=== PATIENT | female | born 1965 | race Caucasian/White ===

== ENCOUNTER 2023-08-20 10:18 | Outpatient (AMB) | payer MEDICARE, MEDICAID, SELFPAY ==
--- NOTE | 2023-08-20 11:00 | HO.SPINEOV ---
Intake Visit Reasons: low back pain Intake Note: Ms. 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 She is known to our service and previously had an L4-5 OLIF completed at [facility]. When describing her shooting leg pains she runs her hand over her lateral thigh, across the lateral side of her knee, and down her lateral gastrocnemius. She denies any numbness/burning but does say she gets some intermittent tingling that accompanies her radicular pain. No issues with micturition or bowel movements. She states the pain is worse on her right, but intermittently will affect her left side as well. She states she has tried a plethora of over the counter medications to help alleviate this pain, including ibuprofen, Tylenol, and [id number] pain patches/creams. She has been to physical therapy in the last 3 months which she did not find helpful for her, and only exacerbated her pain. She is also being followed by our colleagues at [facility] pain management who recently started her on duloxetine to help mitigate her nerve pain. She states that her pain is exacerbated by walking, lifting, and ambulating up stairs. It is alleviated by sitting or lying down. PMH: High blood pressure, RA, anxiety, osteoarthritis, osteopenia (nearly osteoporosis, last DEXA -2.4). Social hx: The patient does not smoke, reports no substance use. Medications: Lisinopril, bupropion, duloxetine, Xeljanz, turmeric, ibuprofen, magnesium. Allergies: NKDA. Physical exam: The patient has 5/5 strength in her upper and lower extremities. She has no sensational deficits. Her bilateral patellar reflexes are 1+ hypoactive. The rest of her reflexes are 2+ intact. She is able to ambulate well and rises from a seated position without difficulty. (-) bilateral straight leg raise, (-) Justin's, (-) clonus. Imaging review: MRI of the lumbar spine completed at [facility] shows stable fusion at L4-5. At L3-4 there appears to be the development of severe central canal and bilateral foraminal stenosis, worse on the right. Impression: Rosita is a pleasant 58-year-old female who comes in today with a chief complaint of shooting leg pains on both sides, worse on the right. Importantly, she reports no back pain and states that her back feels fine. She has been treated conservatively over the course of the last year, and her pain is only continued to worsen. On review of her MRI appears she has some adjacent segment degeneration at L3-4. I would like to review her imaging and history with Dr. Molina to see if there are any surgical intervention to would like to offer her. We tentatively discussed the possibility of extending her fusion from L4-5 up to L3-4, however this typically would be done to address back pain as well as radiculopathy. We also discussed the possibility of a lumbar decompression surgery at L3-4. I will call the patient back later this week after I have discussed this with Dr. Molina. Thank you for allowing us to care for your patient. The total time spent with this visit with this patient was 45 minutes reviewing history, physical exam, MRI imaging review, and implementation of treatment plan or further diagnostic testing Jama Molina MD,PhD [facility] Coding Level of Care Code New Pt Level 4 (63215) Diagnoses Lumbar radiculopathy M54.16
== END 2023-08-20 12:26 | disposition home or self-care (01) ==
PROVIDERS: PCP Family Medicine; Referring Provider Physical Medicine & Rehabilitation; Visit Provider Physician Assistant
DX: M54.16 Radiculopathy, lumbar region (principal)
CPT/HCPCS: 99204

== ENCOUNTER → 2023-08-20 10:18 | Outpatient (BNVA) | payer MEDICARE, MEDICAID, SELFPAY | PROVIDERS: PCP Family Medicine; Visit Provider Physician Assistant | DX: M54.16 Radiculopathy, lumbar region (principal) | CPT/HCPCS: 99202 ==

== ENCOUNTER 2023-11-09 09:28 | Outpatient (AMB) | payer MEDICARE, MEDICAID, SELFPAY ==
--- NOTE | 2023-11-09 09:44 | HO.SPINEOV ---
Intake Visit Reasons: Discuss sx Intake Note: Ms. Hudson is here today to discuss surgical options. Denial Management Representative Required: No Assessment & Plan Assessment & Plan (1) Lumbar spinal stenosis due to adjacent segment disease after fusion procedure: Code(s): M48.061 - Spinal stenosis, lumbar region without neurogenic claudication; M51.36 - Other intervertebral disc degeneration, lumbar region Category: Medical Plan Dear colleague, On 11/09/2023, I saw for preoperative visit Rosita Hudson. She underwent an minimally invasive L4-5 lumbar fusion 2 years ago and developed adjacent degenerative disc disease L3-4 with neurogenic claudication symptoms and back pain. She completed a course of physical therapy without effect. She recently was started on gabapentin 3 x 300 which helps tremendously. However, she still has severe pain in her back radiating to her right leg that wakes her up at night. She is leaning towards surgery to address the ongoing symptoms. I offered her an L3-4 OLLIF, trans Kambin approach to indirectly decompress the central canal and exiting nerve roots. She is tentatively scheduled for 04/01/2024. She will need to Xeljanz 2 weeks prior to surgery. I spent 25 minutes in his consult discussing the procedure and reviewing imaging. Giancarlo Molina MD, PhD Spine Fellowship Trained Neurosurgeon Director, [facility] Coding Level of Care Code Est Pt Level 3 (97959) Diagnoses Lumbar spinal stenosis due to adjacent segment disease after fusion procedure M48.061; M51.36
== END 2023-11-09 09:58 | disposition home or self-care (01) ==
PROVIDERS: PCP Family Medicine; Visit Provider Neurological Surgery
DX: M48.061 Spinal stenosis, lumbar region without neurogenic claudication (principal); M51.36 Other intervertebral disc degeneration, lumbar region
CPT/HCPCS: 99213

== ENCOUNTER → 2023-11-09 09:28 | Outpatient (BNVA) | payer MEDICARE, MEDICAID, SELFPAY | PROVIDERS: PCP Family Medicine; Visit Provider Neurological Surgery | DX: M48.061 Spinal stenosis, lumbar region without neurogenic claudication (principal); M51.36 Other intervertebral disc degeneration, lumbar region | CPT/HCPCS: 99212 ==

== ENCOUNTER 2024-01-29 06:00 | Inpatient (IN) | payer MEDICARE, MEDICAID, SELFPAY ==
[2024-01-18 10:23] VITALS: BP 144/84; PULSE 65; RESP 18; O2SAT 97; BMI 39.1
[2024-01-18 11:39] LABS: MANUAL DIFF FLAG NO
[2024-01-18 12:32] LABS: Basophils Percent Auto 0.6 % (0-2); Eosinophils Absolute Auto 0.1 X10*3/uL (0.0-0.4); Eosinophils Percent Auto 2.2 % (0-4); Hematocrit 41.1 % (37.0-47.0); Hemoglobin 13.6 g/dl (12.0-16.0); Imm Gran Abs Auto 0.11 X10*3/uL (0.00-0.03); Imm Gran Pct Auto 1.7 % (0.0-0.4); Lymphocytes Absolute Auto 2.2 X10*3/uL (1.2-4.9); Lymphocytes Percent Auto 34.3 % (20-40); Mean Corpuscular HGB Conc 33.1 g/dl (31.0-35.0); Mean Corpuscular Hemoglobin 29.8 pg (27.0-33.0); Mean Corpuscular Volume 90.1 fL (80.0-98.0); Mean Platelet Volume 9.6 fL (9.4-12.3); Monocytes Absolute Auto 0.5 X10*3/uL (0.1-1.2); Monocytes Percent Auto 8.4 % (2-11); Neutrophils Absolute Auto 3.3 x10*3/uL (2.0-8.3); Neutrophils Percent Auto 52.8 % (45-73); Platelet Count 348 X10*3/uL (160-400); Red Blood Count 4.56 X10*6/uL (4.20-5.50); Red Cell Distribution Width 14.3 % (11.0-16.0); White Blood Count 6.3 X10*3/uL (4.8-10.8)
[2024-01-18 13:12] LABS: Anion Gap 12 (12-20); Blood Urea Nitrogen 26 mg/dL (9-16); Calcium 9.3 mg/dL (8.4-10.2); Carbon Dioxide 26 mmol/L (22-29); Chloride 106 mmol/L (96-108); Creatinine Clr Calc Pharmacy 85.5; Estimated Glomerular Filt Rate > 60; Glucose Random 87 mg/dL (60-115); Potassium 4.2 mmol/L (3.3-5.1); Sodium 140 mmol/L (135-145)
[2024-01-29] VITALS (17 sets, daily range): BP systolic 112–141; BP diastolic 64–88; PULSE 68–83; RESP 16–18; TEMP 36–36.6; O2SAT 93–98
[2024-01-29] MEDS: methocarbamoL 750 MG TABLET PO (06:36)
--- NOTE | 2024-01-29 07:01 | MHC.SHP ---
Pre-Procedural Eval Section A - 24 Hr Update-Section A only Date of Service: 01/29/24 The patient is an INPATIENT: No Changes since office visit: No Cold of Flu in the past 2 weeks, No New Medical Problems, No Changes in Medication and No Patient answered all questions The patient has been examined within 24 hours of the surgical procedure. The History & Physical has been completed within 30 days and I have reviewed it.: No Section B - Complete if H&P > 30 days Chief Complaint: s/p L3-4 OLLIF Allergies: Allergies Allergy/AdvReac Type Severity Reaction Status Date / Time No Known Allergies Allergy Verified 01/29/24 06:04 Review of Systems Sugical H&P ROS: Negative: Constitution, Cardiovascular, Respiratory, Neurological, Psychiatric, Hem-Onc, Allergic/Immunologic, Gastrointestinal, Genitourinary, Musculoskeletal, Integumentary, Endocrine and Eyes/Ears/Nose/Throat Exam Surgical H&P Exam: Normal: HEENT, Normal: Heart, Normal: Lungs, Normal: Extremities, Normal: Abdomen, Normal: Skin and Normal: Neurological (awake, alert,oriented x 3 ) Plan Diagnosis/Plan: Unchanged L3-4 transkambin oblique lateral lumbar interbody fusion Time Spent With Patient Time: Total time managing care of this patient today __6__ minutes.
--- NOTE | 2024-01-29 07:42 | PHA.MEDREC ---
Pharmacy Consult ? Medication Reconciliation Pharmacy has reviewed the medication reconciliation completed by nursing.
--- NOTE | 2024-01-29 08:02 | HO.ANESPROP2 ---
HPI - Anesthesia Eval Consult details Narrative: 58 yo F presenting for L3-4 transkambin lumbar interbody fusion. REGINALD on CPAP. 4mm PFO on echo with Valsalva. PMFSH Active Problems Active Problems: All Active Problems Lumbar spinal stenosis due to adjacent segment disease after fusion procedure (Acute) Lumbar radiculopathy (Acute) Past Medical History Medical History (Updated 01/18/24 @ 10:17 by Blanca Nuñez RN) Back pain Murmur PFO (patent foramen ovale) GERD (gastroesophageal reflux disease) Osteoarthritis Depression Hyperlipidemia TB lung, latent Seropositive rheumatoid arthritis Obesity Diverticulitis Spinal stenosis of lumbar region with neurogenic claudication Lumbar disc disease Polycythemia Sleep apnea Rheumatoid arthritis Irregular heart beats HTN (hypertension) Arthritis Lumbar radiculopathy Family History Family history of problems with anesthesia: No Surgical History Surgical History (Updated 01/18/24 @ 10:17 by Blanca Nuñez RN) History of esophagogastroduodenoscopy (EGD) H/O colonoscopy Hx of colectomy Hx of laparoscopic gastric banding H/O vulvectomy History of colostomy reversal Hx of breast biopsy Hx of hernia repair Hx of spinal fusion Hx of cholecystectomy Hx of carpal tunnel repair History of back surgery History of Problems with Anesthesia: No Social History Social History Are you a primary child care counselor to a significant other at home: No Do you presently have visiting nurse or other home services: No Patient Tobacco Use Status: Former Tobacco user Use of substances other than those prescribed or required for medical reasons: No Have you been hit, kicked, punched, or otherwise hurt by someone within the past year? If so, by whom?: No Are you DNR?: No Advance Directives: No Advance Directives Information Provided: No Advance Directives on File: No Recently lost weight without trying: No Eating poorly because of decreased appetite: No Nutrition Risks: No Nutritional Risk Patient : No : No Poor oral hygiene: Yes (missing teeth) Meds Allergies Allergy/AdvReac Type Severity Reaction Status Date / Time No Known Allergies Allergy Verified 01/29/24 06:04 Home Medications ?Medication ?Instructions ?Recorded ?Confirmed ?Last Taken ?Type Lactobacillus rhamnosus GG 10 1 cap PO BEDTIME 01/18/24 01/29/24 01/28/24 21:00 History billion cell capsule (Culturelle) bupropion HCl 300 mg 24 hr tablet, 300 mg PO QAM 01/18/24 01/29/24 01/29/24 05:00 History extended release gabapentin 300 mg capsule 300 mg PO TID 01/18/24 01/29/24 01/29/24 05:00 History ibuprofen 800 mg tablet 800 mg PO TID PRN pain 01/18/24 01/29/24 01/21/24 History lisinopril 20 mg tablet 20 mg PO DAILY 01/18/24 01/29/24 01/28/24 History magnesium glycinate 240 mg PO BEDTIME 01/18/24 01/29/24 01/28/24 21:00 History tofacitinib 5 mg tablet (Xeljanz) 5 mg PO BID 01/18/24 01/29/24 01/21/24 History Exam Exam Date and Time: 01/29/24 0725 Height,Weight and Vital Signs: Height 5 ft 3 in Weight 100.244 kg Last Vital Signs Temp 97.1 F 01/29/24 06:15 Pulse 70 01/29/24 06:15 Resp 16 01/29/24 06:15 BP 141/88 H 01/29/24 06:15 Pulse Ox 95 01/29/24 06:15 O2 Del Method Room Air 01/29/24 06:15 Pertinent Lab Results Pertinent Lab Results: Laboratory Tests 01/18/24 01/18/24 11:24 11:39 WBC 6.3 RBC 4.56 Hgb 13.6 Hct 41.1 MCV 90.1 MCH 29.8 MCHC 33.1 RDW 14.3 Plt Count 348 MPV 9.6 Immature Gran % (Auto) 1.7 H Neut % (Auto) 52.8 Lymph % (Auto) 34.3 Sheridan % (Auto) 8.4 Eos % (Auto) 2.2 Baso % (Auto) 0.6 Lymph # (Auto) 2.2 [place]idan # (Auto) 0.5 Eos # (Auto) 0.1 Baso # (Auto) 0.0 Abs Immat Gran (auto) 0.11 H Absolute Neuts (auto) 3.3 Absolute Nucleated RBC 0.000 Nucleated RBC % (auto) 0.0 Sodium 140 Potassium 4.2 Chloride 106 Carbon Dioxide 26 Anion Gap 12 BUN 26 H Creatinine 0.79 Estim Creat Clear Calc 85.5 Estimated GFR > 60 Random Glucose 87 Calcium 9.3 Blood Type O Positive Antibody Screen NEGATIVE Airway Mallampati Class: II TM Dist: >3cm Neck ROM: Full Loose/Missing/Broken Teeth: No (patient denies any loose or broken teeth) Heart: S1S2 Lungs: CTAB Assessment and Plan Assessment Anesthesia Assessment: Anesthesia Plan Discussed and Chart Reviewed Final Anesthetic Review Family History of Problems with Anesthesia: No History of Problems with Anesthesia: No NPO: Yes ASA Class: II Final Preanesthetic Review: No Changes in Pt Med Stat, Meds/Allgs Chart Reviewed, Consent Obtained/Reviewed and Anes Risks/Benef Reviewed Patient Risk: Low Procedure Risk: Intermediate Anesthetic Plan Anesthetic Plan: GA and Agree w/ Assess. and Plan Disposition: Standard PACU
--- NOTE | 2024-01-29 09:18 | P.OP_ITS ---
Operative Note Operative Note Date of Service: 01/29/24 Narrative: Preoperative diagnosis: 1) adjacent degenerative disc disease L3-4 2) status post L4-5 lumbar fusion Postprocedure diagnosis: 1) same as above Procedure: 1) L3-4 oblique lateral lumbar interbody fusion with discectomy, preparation of the endplates and placement of a titanium bullet cage packed with allograft, anterior to the transverse process in modified prone position, with intraoperative biplanar fluoroscopy imaging and electrophysiological monitoring 2) Exposure posterior instrumented fusion L4-5 with removal of bilateral L5 screws 3) L3-4 posterior minimally invasive pedicle screw placement and posterior lateral instrumentation and fusion with intraoperative biplanar fluoroscopic imaging and electrophysiological monitoring 3 Injection of 10 cc of Exparel at the transverse process for a muscular erector spinae block and additional Exparel in paravertebral tissue for postop management Consent Informed Consent was obtained for this operation. I have explained the nature, purpose and benefits of the operation. I have discussed the risks and benefit of the operation including possible complications or adverse events with patient/family. Alternative(s) were discussed with the patient with their r elative benefits and risks as well as the consequences of not accepting the operation were included in obtaining consent. Surgeon: MAREN ZIMMERMAN MD, PHD Procedure Assisted By: Zion christopher Description of Procedure: This is a complex surgery on the lumbar spine and an preschool teacher's assistant as needed for safety of the surgery for setup of instrumentation, retraction and closing. History: This patient underwent a previous L4-5 lumbar fusion. She presented with adjacent degenerative disc disease L3-4 and spinal stenosis with neurogenic claudication. The patient was offered an oblique lumbar lateral interbody fusion followed by a posterior lateral instrumented fusion L3-4. The procedure and complications were explained and the patient was consented. Procedure: The patient was brought to the operating room and endotracheally intubated. The patient was positioned on the Hernandez spine table in a modified prone position for ease of access from the left side.. 2C arms were installed for fluoroscopy. Prepping and draping was done followed by timeout. The landmarks, including spinal processes, transverse processes, disc space, endplates and pedicles are identified and marked. The following steps are taken for each specified level: L3-4 level: Cage size 12 mm high and 33 mm long titanium . The patient was turned using the rotation of the surgical table so a near direct anterior lateral approach to the lumbar spine could be achieved. A small incision was then made superior to the mid iliac crest and then using biplanar fluoroscopy visualization, under electrophysiological monitoring and stimulation, we introduced an electrophysiological probe through the retroperitoneal space into the desired disc anterior to the transverse process and then passed it into the disc space after finding a silent window. The sleeve was retained and the probe was removed, then the K wire was passed sequentially into the disc space. A dilating tube was then passed along the same route. Following this, a working channel, a working channel was then passed sequentially into the disc space. The working channel was manually held in position while a series of disc cleaning tools were passed through the channel to remove the affected disc under clear and direct biplanar fluoroscopic visualization, decompress the nerve roots and equal corticated vertebral endplates at this segment. Arthrodesis of the intervertebral space via an anterior retroperitoneal exposure was achieved through Kambin's [place] and lateral extraforaminal space. Allograft was added into the anterior disc space. The working channel was then removed. A titanium interbody cage tightly packed with allograft was then inserted into the midportion of the intervertebral disc space over a K-wire under biplanar fluoroscopic visualization and intraoperative neuro monitoring. The inter pedicular and intradiscal space was significantly enlarged and disc height was restored to worked normal anatomy there for releasing pressure on the nerve roots visual largely the spinal canal and lateral recess as well as foramen were bilateral decompressed and all bones were confined to the borders of the disc space . Injection of 10 cc of Exparel at the L3 transverse process for a muscular erector spinae block and additional Exparel in paravertebral tissue for postop management. The previous paramedian incisions were opened to expose the L4-5 instrumentation. Locking caps were removed as well as the bilateral rods. The L5 screw were removed and the L4 screws were left in situ. The following steps are then taken for each specified level: L3 level: Bilateral L3 screws with a diameter of 6.5 x 45 mm. The posterolateral fusion is initiated after the patient is rotated to a true prone position. The entry point to the pedicle is identified in the AP and lateral views and then the skin incision is injected with local anesthetic. We entered the pedicle with the pediguard tap after which a K-wire was introduced into the vertebral body. Additionally, I used a small periosteal decorticator along the screws to refresh the surface of the bone and facet and I put some amount of allograft for additional stability for the posterolateral fusion. Over the K-wire we insert pedicle screws bilaterally at L3. After the screws were placed, we connected the mikel to the L4 screws and locked the mikel in place and removed the screw tops and then each incision has been closed with 0 Vicryl for the fascia and a 3-0 Vicryl for the subdermal layer. Steri-Strips were used to approximate the incisions. An OpSite with Tegaderm was used to cover the incision. Final x-rays and AP and lateral projection showed good position of the interbody device and instrumentation. All sponge and needle counts were correct. The patient was extubated and transported in a stable condition to the recovery room. 2-0 Vicryl This procedure was done with the aid of a physician preschool teacher's assistant as a qualified resident was not available. Anesthesia: General Estimated Blood Loss (ml): 20 mL Specimen: None Duration of Surgery: 1. Hour 10 minutes Postoperative Plan: Admit to inpatient
[2024-01-29] MEDS: HYDROmorphone HCl 0.5 MG/0.5 ML SYRINGE IVPUSH ×2 (10:30→10:45)
[2024-01-29] MEDS: 0.9 % Sodium Chloride 1,000 ML 75 ML IVCONT ×2 (10:55→23:34)
[2024-01-29] MEDS: oxyCODONE HCl Immed Release 5 MG TABLET PO (11:25)
[2024-01-29] MEDS: Acetaminophen 1,000 MG/100 ML PIGGYBACK 400 MG IV ×2 (14:00→21:27)
[2024-01-29] MEDS: Gabapentin 300 MG CAPSULE PO ×2 (14:03→21:29)
[2024-01-29] MEDS: ceFAZolin Sodium/Dextrose,Iso 2 GM/50 ML PIGGYBACK IV ×2 (14:03→21:26)
[2024-01-29] MEDS: Ketorolac Tromethamine 15 MG/ML VIAL IVPUSH ×2 (14:32→21:29)
[2024-01-29] MEDS: ondansetron HCL 4 MG/2 ML VIAL IVPUSH (14:32)
[2024-01-29] MEDS: hydrOXYzine HCL 50 MG TABLET PO ×2 (14:32→21:30)
[2024-01-29] MEDS: oxyCODONE HCl Immed Release 5 MG TABLET 10 MG PO (18:34)
[2024-01-29] MEDS: HYDROmorphone HCl 1 MG/ML SYRINGE IVPUSH (21:29)
[2024-01-29] MEDS: Docusate Sodium 100 MG CAPSULE PO (21:30)
[2024-01-30] MEDS: ceFAZolin Sodium/Dextrose,Iso 2 GM/50 ML PIGGYBACK IV (02:35)
[2024-01-30] MEDS: Ketorolac Tromethamine 15 MG/ML VIAL IVPUSH ×2 (03:11→09:37)
[2024-01-30] MEDS: Acetaminophen 1,000 MG/100 ML PIGGYBACK 400 MG IV ×2 (03:11→08:14)
[2024-01-30 03:48] VITALS: BP 108/59; PULSE 72; RESP 18; TEMP 36.1; O2SAT 96
--- NOTE | 2024-01-30 07:05 | P.DS_ITS ---
DS: Providers Provider Date of Service: 01/30/24 Date of admission: 01/29/24 06:00 Primary care physician: Daphnie Deleon MD DS: Summary Time Attestation Discharge Coordination Time (in mins): 15 Quality: Safe Use of Opioids Does Pt have an Active Cancer Diagnosis on the Problem List?: No Quality: Stroke Does the patient have a stroke diagnosis?: No Physical Exam Vital Signs: Vital Signs: Last Vital Signs Temp 96.9 F 01/30/24 03:48 Pulse 72 01/30/24 03:48 Resp 18 01/30/24 03:48 BP 108/59 L 01/30/24 03:48 Pulse Ox 96 01/30/24 03:48 O2 Del Method CPAP 01/30/24 03:48 O2 Flow Rate 6 01/29/24 09:40 BMI result Body Mass Index 39.1 Discharge Plan Discharge Anticipated Discharge Date/Time: 01/30/24 09:00 Patient Disposition: Home, Self-Care Discharge Diagnosis: s/p L3-4 Transkambin Lumbar Fusion Referrals: Daphnie Deleon MD [Primary Care Provider] - 1 Week Discharge Medications: New hydroxyzine HCl 50 mg tablet 50 mg PO TID Qty: 30 1RF methocarbamol 750 mg tablet 750 mg PO TID Qty: 30 1RF oxycodone 5 mg tablet See Rx Instructions .ROUTE .COMPLEX PRN (Reason: pain) Qty: 30 0RF Rx Instructions: Take 1-2 tablets by mouth every 4 hours. Partial Fill upon patient request. Continued ibuprofen 800 mg tablet 800 mg PO TID PRN (Reason: pain) lisinopril 20 mg tablet 20 mg PO DAILY bupropion HCl 300 mg tablet extended release 24 hr 300 mg PO QAM magnesium glycinate 240 mg PO BEDTIME gabapentin 300 mg capsule 300 mg PO TID Culturelle 10 billion cell Capsule 1 cap PO BEDTIME Held tramadol 50 mg tablet See Rx Instructions PO Q8H PRN (Reason: moderate pain) Qty: 30 0RF Hold Instructions: Resume on 01/30/24. course complete Rx Instructions: Take 1-2 tablets orally every 8 hours PRN; Xeljanz 5 mg tablet 5 mg PO BID Hold Instructions: Resume on 02/12/24. Discharge Orders: Discharge Order (Routine); Ordered 11/13/24 Ordered By: Jama Pitrat Diet: Advance to usual diet Activity on Discharge: As tolerated Stand Alone Forms: Patient Portal Discharge page Print Language: Georgian Activity Restrictions/Additional Instructions: After your spinal surgery we ask you to observe the following restricti ons/guidelines: Activity: It is normal to feel some discomfort as you increase your activity, but that will improve with time. We ask you avoid heavy lifting or acitivities that cause pain. As a general rule, 8lbs is a safe limit for lifting right after surgery. Walk as much as you feel comfortable but not to exhaustion. You will feel extra tired the first few days after surgery. Stay well hydrated. It is OK to walk up and down stairs You may return to driving when you are off narcotics (such as vicodin, oxycodone, dilaudid, etc), and you are back to normal functional capacity. If you have any concerns please check with office before driving. Return to work is specific to each patient and each surgery, so please speak with your doctor/PA at first follow up. Please bring paperwork such as FMLA at that time if you need it filled out. Medications: PLEASE RESUME YOUR XELJANZ MEDICATION PER RHEUMATOLOGY IN 2 WEEKS FROM SURGERY We are sending in 3 prescriptions for you to be taken alongside your gabapentin daily. Oxycodone 5 mg every 4 hours as needed for severe pain, methocarbamol 750 mg 3 times daily, hydroxyzine 50 mg 3 times daily. We recommend you take 1,000mg Tylenol every 8 hours for the first few weeks after surgery, if you do not have any liver issues and can tolerate this medication. Do not exceed 4,000mg daily. We will give you a short supply of narcotics after surgery (usually one weeks worth). If you need more please call the office but do not use more than prescribed. You will need to give our office 48 hours notice if you need narcotics refilled and we do not fill narcotics on weekends or evenings. If you are on a narcotic, it is a good idea to take a stool softener such as colace or senna to avoid constipation If you take blood thinner such as aspirin, Plavix, Coumadin, Effient, Eliquis etc for conditions such as Afib, DVT, Pulmonary embolus, coronary disease, stents etc please speak with your surgeon about specific details as to when you can resume these medications. You can resume NSAIDs on post op day 1 (eg: Motrin, Naproxen, etc). Follow up: Please call the office, , after surgery to arrange a 3 week follow up for wound check. Wound Care: You may remove your dressing on the first day after surgery. ?You may ?leave open to air. Please do not remove the steri strips underneath. they will fall off on their own in one week. IT IS NORMAL FOR THE WOUND TO OOZE OR BE BLOODY FOR A FEW DAYS AFTER SURGERY. ?IF THIS HAPPENS JUST PLACE NEW DRESSING OVER IT TO AVOID STAINING CLOTHES. You may shower on post op day # 1 We ask that you do not let the water soak the wound. If it does get wet, just towel dry lightly. Please do not scrub your incision or place any type of chemical/ointment on the wound. No tub baths, pools or jacuzzis for one month. If you have any leaking or redness from your wound, or fevers, please call the office. Care Plan Goals: Return to normal activity as tolerated Health Concerns: None Plan of Treatment: Follow-up in clinic in 2-3 weeks Assessment: POD: 1 Procedure: L3-4 transkambin lumbar fusion Patient reports she is up walking around is otherwise doing well. She feels that overall her symptoms are much better than pre-operatively. She still reports mild pain in her low back and left leg, with good relief with pain medication. She is voiding well, tolerating diet. Afebrile, vital signs stable. The patient has about 4/5 strength with her left-sided iliopsoas the rest of her strength is 5/5 in the lower extremities. Back dressings have some staining without signs of hematoma. No active sanguineous drainage. Area is dry. Plan: The pain and slight weakness in her left leg that she is experiencing is likely secondary to the surgical approach and will self resolve. Patient meets criteria to be medically discharged home. She was seen at bedside with Dr. Molina. I sent in her medications here to [facility] pharmacy. I also gave her a paper prescription for front wheel walker per physical therapy. Jama Molina MD,PhD [facility]
[2024-01-30 07:25] VITALS: BP 108/59; PULSE 72; O2SAT 96
[2024-01-30 07:40] VITALS: BP 130/73; PULSE 72; RESP 17; TEMP 36.3; O2SAT 97
[2024-01-30] MEDS: oxyCODONE HCl Immed Release 5 MG TABLET PO (08:12)
[2024-01-30] MEDS: hydrOXYzine HCL 50 MG TABLET PO (08:13)
[2024-01-30] MEDS: buPROPion HCl XL 300 MG TAB.ER.24H PO (08:13)
[2024-01-30] MEDS: Gabapentin 300 MG CAPSULE PO (08:13)
[2024-01-30] MEDS: lisinopriL 20 MG TABLET PO (08:13)
[2024-01-30] MEDS: Docusate Sodium 100 MG CAPSULE PO (08:13)
--- NOTE | 2024-01-30 09:08 | HO.NEURO.PN ---
Neurosurgery Operative Note Date of Service: 01/30/24 Narrative: POD: 1 Procedure: L3-4 transkambin lumbar fusion Patient reports she is up walking around is otherwise doing well. She feels that overall her symptoms are much better than pre-operatively. She still reports mild pain in her low back and left leg, with good relief with pain medication. She is voiding well, tolerating diet. Afebrile, vital signs stable. The patient has about 4/5 strength with her left-sided iliopsoas the rest of her strength is 5/5 in the lower extremities. Back dressings have some staining without signs of hematoma. No active sanguineous drainage. Area is dry. Plan: The pain and slight weakness in her left leg that she is experiencing is likely secondary to the surgical approach and will self resolve. Patient meets criteria to be medically discharged home. She was seen at bedside with Dr. Molina. I sent in her medications here to [facility] pharmacy. I also gave her a paper prescription for front wheel walker per physical therapy. Jama Molina MD,PhD [facility]
--- NOTE | 2024-01-30 11:02 | MHC.CM.PN ---
IMM 01/30/24 Patient independent lives w family. DP home family transport.
== END 2024-01-30 10:49 | disposition home or self-care (01) | DRG 451 ==
LOC: HO.SSSA 06:04 → HO.S3 10:41
PROVIDERS: Anesthesiology; Neurological Surgery; Admitting Provider Physician Assistant; PCP Family Medicine; Visit Provider Physician Assistant
PROC: 0SG00A0 Fusion of Lumbar Vertebral Joint with Interbody Fusion Device, Anterior Approach, Anterior Column, Open Approach (ICD-10-PCS; principal; 2024-01-29 07:30)
DX: M48.061 Spinal stenosis, lumbar region without neurogenic claudication (principal); M51.369 Other intervertebral disc degeneration, lumbar region without mention of lumbar back pain or lower extremity pain; K21.9 Gastro-esophageal reflux disease without esophagitis; M05.9 Rheumatoid arthritis with rheumatoid factor, unspecified; Z79.899 Other long term (current) drug therapy
CPT/HCPCS: 36415; 80048; 85025; 86850; 86900; 86901; 97116; 97162; C1713; C1889; C9290; J0131; J0665; J0690; J1100; J1171; J1885; J2003; J2250; J2405; J2704; J3010; L8699

== ENCOUNTER → 2024-01-29 06:00 | Outpatient (BNV) | payer MEDICARE, MEDICAID, SELFPAY | PROVIDERS: Admitting Provider Physician Assistant; PCP Family Medicine; Visit Provider Neurological Surgery | DX: Z48.89 Encounter for other specified surgical aftercare (principal) | CPT/HCPCS: 20930; 22558; 22612; 22840; 22853; 63056; 99024; 99499 ==

== ENCOUNTER 2024-02-19 12:48 | Outpatient (AMB) | payer MEDICARE, MEDICAID, SELFPAY ==
--- NOTE | 2024-02-19 12:52 | HO.SPINEOV ---
Intake Visit Reasons: 1st post op Intake Note: Ms. Hudson is here for her 1st post op visit. Felt Strip Finisher Required: No Allergies No Known Allergies Allergy (Verified 02/19/24 12:53) Assessment & Plan Assessment & Plan (1) S/P lumbar fusion: Code(s): Z98.1 - Arthrodesis status Category: Surgical Plan Operation: L3-4 OLLIF Rosita comes in today for 1st postoperative visit after having a L3-4 OLLIF completed by our service. She reports that she has been doing very well since her surgery. She has 0 pain. She has not needed to take any pain medications. She does have some weakness in her left anterior thigh which is likely secondary to the surgical approach. We discussed this during this visit. I answered all questions she had regarding the postoperative healing course and inspected her incisions during this visit. No new neurological deficits. The patient ambulates well and rises from a seated position without difficulty. No assistive devices. Posterior incision sites are clean, dry, intact. I would like to follow up again with Rosita in 6 weeks and obtain a set of x-rays. Jama Molina MD,PhD [facility] Coding Level of Care Code Global (10299) Diagnoses S/P lumbar fusion Z98.1
== END 2024-02-19 13:19 | disposition home or self-care (01) ==
PROVIDERS: PCP Family Medicine; Visit Provider Physician Assistant
DX: Z98.1 Arthrodesis status (principal)
CPT/HCPCS: 99024

== ENCOUNTER → 2024-02-19 12:48 | Outpatient (BNVA) | payer MEDICARE, MEDICAID, SELFPAY | PROVIDERS: PCP Family Medicine; Visit Provider Physician Assistant | DX: Z47.89 Encounter for other orthopedic aftercare (principal); Z98.1 Arthrodesis status | CPT/HCPCS: 99212 ==

== ENCOUNTER 2024-04-01 12:50 | Outpatient (REF) | payer MEDICARE, MEDICAID, SELFPAY ==
--- NOTE | ~2024-04-01 | XR_ITS ---
CLINICAL HISTORY: Z98.1 - Arthrodesis status 4 views lumbar spine Comparison: None Findings: 10 mm anterolisthesis of L4 on L5 unchanged on flexion extension. Posterior fusion from L3-L4 with interbody spacers at L3-4 and L4-5. Scoliotic curvature of the thoracolumbar spine. Disc height loss at L1-2 and L2-3. Bones appear somewhat osteopenic. IMPRESSION: Lumbar fusion with 10 mm anterolisthesis of L4 on L5 that is unchanged on flexion extension. Upper lumbar degenerative changes. Scoliotic curvature of the spine. This document has been electronically signed by: Sindy Mirza MD on 04/03/2024 06:12:45
== END 2024-04-01 12:51 | disposition home or self-care (01) ==
LOC: HO.HOSX 12:50
PROVIDERS: Visit Provider Physician Assistant
DX: Z98.1 Arthrodesis status (principal)
CPT/HCPCS: 72110; 99212

== ENCOUNTER 2024-04-01 12:59 | Outpatient (AMB) | payer MEDICARE, MEDICAID, SELFPAY ==
--- NOTE | 2024-04-01 12:58 | HO.SPINEOV ---
Intake Visit Reasons: 2nd post op with Xrays Intake Note: Ms. Hudson is here today for her 2nd post op visit with xrays. Ent Consultant Required: No Allergies No Known Allergies Allergy (Verified 04/01/24 13:52) Assessment & Plan Assessment & Plan (1) S/P lumbar fusion: Code(s): Z98.1 - Arthrodesis status Category: Surgical Plan Procedure: L3-4 oblique lateral lumbar interbody fusion Rosita comes in today for a subsequent follow-up appointment after having an L3-4 oblique lateral lumbar interbody fusion completed by our service on January 29 2024. To recap during her last visit she was doing very well, in reported no pain. She continues to heal very well from her surgery, and states that she has been completing all of her ADLs without issue. Functionally she is doing very well and reports no issues with ambulation or strength. She is still taking gabapentin prescribed harinder her PCP, but expressed interest in reducing this as well. She does still occasionally supplement with OTCs. Surgical construct is in place with no notable changes. Posterior incision sites appear closed, well healed with no signs of drainage. I would like to order the patient a CT scan of her lumbar spine to be completed 10 months out from surgery to evaluate for fusion progress. We will follow up with her again 1 year out from surgery. Jama Molina MD,PhD [facility] Orders: Orders XR lumbar spine 4V min Today Z98.1 - Arthrodesis status CT lumbar spine wo IV con 10/28/24 Z98.1 - Arthrodesis status Coding Level of Care Code Global (27622) Diagnoses S/P lumbar fusion Z98.1
== END 2024-04-01 15:19 | disposition home or self-care (01) ==
PROVIDERS: PCP Family Medicine; Visit Provider Physician Assistant
DX: Z98.1 Arthrodesis status (principal)
CPT/HCPCS: 99024

== ENCOUNTER 2024-07-14 09:59 | Outpatient (AMB) | payer MEDICARE, MEDICAID, SELFPAY ==
--- NOTE | 2024-07-14 10:00 | A.SPINEOV_ITS ---
Intake Visit Reasons: shooting pain R leg sx 01/29/24 Intake Note: Ms. Hudson is here today c/o Right leg pain and Left back pain above the waist. Equipment Monitor Phototypesetting Required: No Allergies No Known Allergies Allergy (Verified 07/14/24 10:03) Assessment & Plan Assessment & Plan (1) Right hip pain: Code(s): M25.551 - Pain in right hip Category: Medical Plan Mrs Hudson is here in follow up. she underwent a L3-4 TKLIF last year above her previous L4-5 Fusion. There have Been a few things that continued to bother her and she wanted to follow-up today. Specifically, she has right hip pain that has been present even before the surgery. It is aggravated with standing walking almost immediately upon getting up she is slow to stand and it irritates her like she has to limp until she gets going and then she can start to walk more steady but the longer she is on her feet the more it irritates her. At nighttime she also gets intermittent radicular pain down her anterior thigh into her anterior tibial region. This however is not present when she is walking. She also gets back pain on the left side just above her stab incisions from the pedicle screws. She had a previous right hip MRI done last year at [facility] showing right hip trochanteric bursitis which was fairly pronounced on the MRI as well as a gluteal tendinopathy. Most recent x-rays of the lumbar spine show excellent placement of the hardware. On exam she is uncomfortable with standing up straight and she can pinpoint right directly over the right hip where this pain is bothering her. She does have pain with PRICE testing. External rotation does not reveal any discomfort. Pain with hip flexion causes some weakness but there is no neurological weakness. Distal lower extremity strength is full. We discussed the fact that the symptoms she is having see more consistent with the MRI showing trochanteric bursitis rather than nerve pain. She does have what sounds like a pseudo radiculopathy at nighttime but it is not present during the day or when she is walking. I gave her a referral to PT for the bursitis. She can follow up with us on an as-needed basis. Total amount of time spent in this visit was 20 minutes in discussion of symptoms, lumbar and hip imaging results and subsequent plan of care Zion Molina MD,PhD [facility] Orders: Orders PT Evaluation and Treatment Today M25.551 - Pain in right hip Coding Level of Care Code Est Pt Level 3 (24971) Diagnoses Right hip pain M25.551
--- OUTSIDE RECORDS SUMMARY | 2024-07-14 11:29 | XMS_ITS | Clinical Summary ---
Author Organization [facility] Address [address] [place] [address] Care Team Providers Care Screener And Blender Name Role Phone Guido Horowitz MD Primary Care Provide r Social History Tobacco Use Types Packs/Day Years Used Date Smoking Tobacco: Never Assessed Sex and Gender Information Value Date Recorded Sex Assigned at Not on file Gender Identity Not on file Sexual Orientation Not on file Plan of Treatment Health Maintenance Due Date Last Done Comments Hepatitis C Screening 1965 Depression Screening 1975 Preventative Health Evaluation 05/30/1981 Cervical Cancer Screening (Pap Smear) 05/30/1984 Colon Cancer Screening (Colonoscopy) 05/30/2008 Breast Cancer Screening (Mammogram) 05/30/2013 DTap / Tdap / Td (2 - Td or Tdap) 07/11/2016 07/11/2006 COVID-19 Vaccine ( season) 2023 06/26/2020, 05/29/2020 Influenza Vaccine (#1) 2023 0, 02/24/2019, 12/04/2017, Additional history exists RSV Adult > 60+ Yrs or (1 - 1-dose 75+ series) 05/30/2038 Shingrix-Zoster Vaccine Completed 02/26/2018, 12/07 Pneumococcal Vaccine Aged Out 02/10/2020, 02/20/20 18 No longer eligible based on patient's age to complete this topic Hepatitis B Vaccines Aged Out No long er eligible based on patient's age to complete this topic RSV Ped < 20 months Aged Out No longe r eligible based on patient's age to complete this topic Care Teams Screener And Blender Relationship Specialty Start Date End Date Guido Horowitz MD [address] [place] [phone] PCP - General Internal Medicine 01/12/21
--- OUTSIDE RECORDS SUMMARY | 2024-07-14 11:29 | XMS_ITS | Clinical Summary ---
Author Organization [facility] [address] [facility] Address [address] [place] [address] Phone Care Team Providers Care Batter Depositor Name Role Phone Daphnie Deleon MD Primary Care Provider Allergies No known active allergies Medications Bacillus coagulans-inuli n 1 billion-250 cell-mg capsule Take by mouth 1 (one) time each day. Active MAGNESIUM GLYCINATE ORAL Take 240 mg by mouth. Active acetaminophen (TYLENOL 8 HOUR) 650 mg 8 hr tablet Take 1 tablet (650 mg total) by mouth every 8 (eight) hours if needed. 01/18/20 24 Active docusate sodium (COLACE) 100 mg capsule Take 1 capsule (100 mg total) by mouth. 12/23/19 22 Active lisinopriL (PRINIVIL,ZESTR IL) 20 mg tablet Take 1 tablet (20 mg total) by mouth 1 (one) time each day. 10/02/19 24 Active ibuprofen (ADVIL,MOTRIN) 800 mg tabletIndicatio ns:Radiculopath y, lumbar region TAKE 1 TABLET BY MOUTH THREE TIMES A DAY NEEDED FOR PAIN 90 tablet 1 02/21/20 24 Active topiramate (Topamax) 50 mg tabletIndicatio ns:Class 2 severe obesity due to excess calories with serious comorbidity and body mass index (BMI) of 39.0 to 39.9 in adult (CMS/HCC V24, CMS/HCC V28) Take 1 tablet (50 mg total) by mouth at bedtime. 30 each 03/04/20 24 Active buPROPion XL (WELLBUTRIN XL) 300 mg 24 hr tabletIndicatio ns:Essential (primary) hypertension,En counter for general adult medical examination without abnormal findings TAKE 1 TABLET BY MOUTH EVERY DAY IN THE MORNING 90 tablet 1 05/31/19 25 Active nystatin (MYCOSTATIN) ointment Apply to affected area twice daily as needed for rash. 30 g 3 05/31/19 25 Active tirzepatide, weight loss, (Zepbound) 5 mg/0.5 mL injection Inject 0.5 mL (5 mg total) under the skin every 7 (seven) days for 28 days. 2 mL 07/01/19 25 025 Active gabapentin (NEURONTIN) 300 mg capsule Take 1 capsule (300 mg total) by mouth 2 (two) times a day. For Back Pain 180 capsule 1 07/09/19 25 Active gabapentin (NEURONTIN) 300 mg capsule Take 1 capsule (300 mg total) by mouth 2 (two) times a day. For back pain 04/03/19 25 025 Discontinued tirzepatide, weight loss, (Zepbound) 2.5 mg/0.5 mL injectionIndica tions:Class 2 severe obesity due to excess calories with serious comorbidity and body mass index (BMI) of 38.0 to 38.9 in adult ([facility] V24, [facility] V28),Obstructiv e sleep apnea INJECT 0.5 ML (2.5 MG TOTAL) UNDER THE SKIN EVERY 7 (SEVEN) DAYS FOR 4 DOSES. 2 mL 06/07/19 25 025 Active Problems Problem Noted Date Diagnosed Date Class 2 severe obesity with serious comorbidity and body mass index (BMI) of 37.0 to 37.9 in adult ([facility] V24, [facility] V28) 03/11/2024 Lumbar disc disease 10/28/2020 Overview (01/25/2024): Spinal fusion 12/22/2020 L4-L5 Last Assessment & Plan: Following Dr. Smith's, [facility] neurosurgery for her back pain-she is currently taking about 6 tablets of ibuprofen for the severe pain daily. She has severe L4-L5 stenosis with significant facet arthropathy and spondylolisthesis at L4-L5. She is scheduled for lumbar spinal surgery/lumbar fusion on November 18, 2020. Spinal stenosis of lumbar re gion with neurogenic claudication 10/28/2020 Overview (01/25/2024): Following Dr. Smith's, [facility] neurosurgery. Lumbar spinal fusion on November 18. Diverticulitis 05/14/2019 Overview (01/25/2024): 05/2016 With rupture, colectomy with colostomy, colostomy takedown 4 months later Obstructive sleep apnea 10/20/2016 Overview (01/25/2024): [facility] Home Polysomnogram: Date 10/17/2016; AHI 24, Unclassified apneas 1; Obstructive apneas 11; Central apneas 3; Mixed apneas 0; hypopneas 110; average oxygen saturation 94% (lowest 73% without saturations <88% for 5% or more of study) [facility] Polysomnogram treatment study. Date 01/03/2017 . SE 65 % SM 69 %; spent 20 % of the study in REM. At the optimal pressure of 13 CPAP; RDI 1.3 (AHI 1.3), Central apneas 2; Obstructive apneas 0; Mixed apneas 0; hypopneas 0; RERAs 0; and, average oxygen saturation was 95%. For the entire study, PLMs ~11. Seropositive rheumatoid arth ritis ([facility] V24, [facility] V28) 03/09/2016 Overview (01/25/2024): Onset ~ 2013 RF neg, CCP pos Sulfasalazine 05/05-12/03: Ineffective Hydroxychloroquine 04/2016 -11/2016: Ineffective Methotrexate 05/06-09/03: Ineffective Enbrel 11/02-08/03- failing effect. Xeljanz since 09/03 TB lung, latent 08/26/2015 Overview (01/25/2024): Positive serology reported from [facility], seen by Dr. Price at TB clinic, positive T-spine and QuantiFERON gold, normal LFTs 12/21/15, Rx rifampin 600 mg daily ? 4 months on 01/18/16 Polycythemia 10/22/2013 Hyperlipidemia 07/21/2013 Depression 10/25/2008 Osteoarthritis 10/25/2008 Overview (01/25/2024): Thoracic, & Lumbosacral Spine Essential hypertension 10/23/2008 Overview (01/25/2024): Off lisinopril hctz since 12/23 GERD (gastroesophageal reflux disease) 9 PFO (patent foramen ovale) 10/23/2008 Overview (01/25/2024): 4mm on KARLA in 04/23 with mod right to left shunt, EF 60%, treadmill exercise test neg 06/15/04, Encounters Date Type Department Care Team Description 06/27/2024 10:00 AM EDT Telemedicine Bariatric Surgery - [address] [phone] Sheri Martinez, BHUMIKA Class 2 severe obesity with serious comorbidity and body mass index (BMI) of 37.0 to 37.9 in adult, unspecified obesity type (CMS/HCC V24, CMS/HCC V28) (Primary Dx) 06/09/2024 10:30 AM EDT Office Visit Orthopedic Surgery [address] [place] [address] Yumi Westbrook PA Left carpal tunnel syndrome (Primary Dx) 06/05/2024 9:15 AM EDT Office Visit Bariatric Surgery [address] [phone] Dc Morrow MD Class 2 severe obesity due to excess calories with serious comorbidity and body mass index (BMI) of 38.0 to 38.9 in adult (CMS/HCC V24, CMS/HCC V28) (Primary Dx); Obstructive sleep apnea 06/05/2024 Telephone Bariatric Surgery [address] [phone] Dc Morrow MD PRIOR AUTHORIZATION (Zepbound 2.5 MG) 05/14/2024 Telephone Bariatric Surgery [address] [phone] Dc Morrow MD 05/06/2024 Telephone Bariatric Surgery - [address] [place] [address] Dc Morrow MD Med Refill from Last 3 Months Immunizations Name Administration Dates Next Due Influenza Quadravalent, MDCK , 0.5ml, preservative free (Flucelvax) 6mo and older 04/03/2023,12/22/2021,01/31/2021,02/09,02/24/2019,12/04/2017 Influenza Quadravalent, MDCK , 0.5ml, with preservative (Flucelvax) 6mo and older 12/06/2016 Influenza trivalent, 0.5mL, preservative free (Fluarix; FluLaval; Fluzone) ages 6mo and older (Afluria) 3 years and older 01/07/2016,12/17/2013,12/30/2012,12/17,01/05/2010 Moderna SARS-CoV-2 COVID-19, mRNA, LNP-S, preservative free 03/02/2021,06/26/2020,05/29/2020 Pneumococcal conjugate 13 va lent (Prevnar 13, PCV13) 2mo and older 02/19/2018 Pneumococcal polysaccharide 23 valent (Pneumovax 23) 2yo and older 02/10/2020 Td Tetanus diptheria (Tdvax) 7yo and older 12/04/2017 Tdap Tetanus diptheria acell ular pertussis (Boostrix; Adacel) 7yo and older 07/11/2006 Zoster recombinant (Shingrix ) 19yo and older 02/26/2018,12/07/2017 Surgical History Surgery Date Site/Laterality Comments CHOLECYSTECTOMY 2006 PROCEDURE: HISTORICAL CHOLECYSTECTOMY CARPAL TUNNEL RELEASE Right PROCEDURE: HISTORICAL CARPAL TUNNEL REL; COMMENT: Dr Queen LAPAROSCOPIC GASTRIC BANDING 09/27/06,09/2008 PROCEDURE: LAP ADJUSTABLE GASTRIC BAND HERNIA REPAIR 09/2008 PROCEDURE: HISTORICAL HERNIA REPAIR/MARY OTHER SURGICAL HISTORY PROCEDURE: HISTORY OTHER; COMMENT: laser surgery on vulva and cx. Neg for malignancy sees Dr Moe OTHER SURGICAL HISTORY PROCEDURE: HISTORY OTHER; COMMENT: negative breast biopsy OTHER SURGICAL HISTORY 10/04/2016 PROCEDURE: HISTORY OTHER; COMMENT: lap colostomy reversal, Dr Se Encinas HERNIA REPAIR 07/10/2017 PROCEDURE: HISTORICAL HERNIA REPAIR/MARY; COMMENT: Incisional hernia repair OTHER SURGICAL HISTORY 06/10/2016 PROCEDURE: OH LAPS COLECTOMY PRTL W/RMVL TERMINAL ILEUM; COMMENT: sigmoid colectomy with colostomy and removal of lap band, Dr Se Encinas OTHER SURGICAL HISTORY 09/21/2016 PROCEDURE: OH LAPS GASTRIC RESTRICTIVE PX REMOVE DEVICE; COMMENT: Removal of Lap band BACK SURGERY 12/22/2020 PROCEDURE: HISTORICAL BACK SURGERY; COMMENT: L 4-5 spinal fusion anterior posterior, Dr. Molina OTHER SURGICAL HISTORY 12/29/1987 Bilateral PROCEDURE: HISTORY OTHER; COMMENT: Vulvectomy SPINAL FUSION 01/31/2024 L3-L4- by at [facility] Medical History Medical History Date Comments Hypertension DX:Hypertension; COMMENT: resolved after lap band surgery Patent foramen ovale DX:Patent f oramen ovale; COMMENT: 4mm on KARLA in 04/23 with mod right to left shunt, EF 60%, treadmill exercise test neg 06/15/04, Diverticulitis 05/14/2019 DX:Diverticuliti s; COMMENT: 06/2016 With rupture, colectomy with colostomy, colostomy takedown 3 months later Osteoarthritis 10/25/2008 DX:Osteoarthriti s; COMMENT: Thoracic, & Lumbosacral Spine Hyperlipidemia 07/21/2013 DX:Hyperlipidemi a Depression 10/25/2008 DX:Depression Elevated glucose 06/17/2012 DX:Elevated glu cose; COMMENT: Elevated on one occasion, not fasting, will follow this GERD (gastroesophageal reflu x disease) 10/23/2008 DX:GERD (gastroesophageal re flux disease) 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 Date 01/03/2017 . SE 65 % SM 69 %; spent 20 % of the study in REM. At the optimal pressure of* Polycythemia 10/22/2013 DX:Polycythemia Seropositive rheumatoid arth ritis ([facility] V24, [facility] V28) 03/09/2016 DX:Seropositive rheumatoid arthritis ([facility]); COMMENT: Onset - 2013 RF neg, CCP pos Sulfasalazine 05/05-12/03: Ineffective Hydroxychloroquine 04/2016 -11/2016: Ineffective Methotrexate 05/06-09/03: Ineffective Enbrel 11/02-08/03- failing effect. Xeljanz since 09/03 TB lung, latent 08/26/2015 DX:TB lung, late nt; COMMENT: Positive serology reported from [facility], seen by Dr. Price at TB clinic, positive T-spine and QuantiFERON gold, normal LFTs 12/21/15, Rx rifampin 600 mg daily ? 4 months on 01/18/16 Morbid obesity with BMI of 40.0-44.9, adult ([facility] V24, [facility] V28) 10/06/2016 DX:Morbid obesity with BMI o f 40.0-44.9, adult ([facility]) Family History Medical History Relation Name Comments Hypertension Brother Lymphoma Father [place], Hypertensio n, Stroke Mother Valve replaceme nt, s/p rheumatic fever Blindness Neg Hx Breast cancer Neg Hx Cataracts Neg Hx Glaucoma Neg Hx Macular degeneration Neg Hx Strabismus Neg Hx Relation Name Status Comments Brother Daughter 1 Gertrudis Alive Daughter 2 Kasey Alive Father (Age 78) Maternal Grandfather Maternal Grandmother Mother (Age 82) Paternal Grandfather Paternal Grandmother Social History Tobacco Use Types Packs/Day Years Used Date Smoking Tobacco: Former Cigarettes Q uit: 03/19/1993 Smokeless Tobacco: Never Tobacco Cessation:Counseling Given: Not Answered Alcohol Use Standard Drinks/Week Comments No 0 (1 standard drink = 0.6 oz pur e alcohol) Comments No Sex and Gender Information Value Date Recorded Sex Assigned at Not on file Legal Sex Female 11:47 PM EST Gender Identity Not on file Sexual Orientation Not on file Obstetrics History Last Filed Vital Signs Vital Sign Reading Time Taken Comments Blood Pressure 155/90 06/05/2024 9:37 AM EDT Pulse 65 06/05/2024 9:37 AM EDT Temperature 36.6 ??C (97.8 ??F) 06/05/2024 9:37 AM ED T Respiratory Rate 16 04/03/2024 9:55 AM EST Oxygen Saturation - - Inhaled Oxygen Concentration - - Weight 95.9 kg (211 lb 6.4 oz) 06/27/2024 10:00 AM EDT Height 160 cm (5' 2.99 ) 06/09/2024 10:31 AM EDT Body Mass Index 37.46 06/09/2024 10:31 AM EDT Plan of Treatment Upcoming Encounters Date Type Department Care Team (Late st Contact Info) Description 07/31/2024 10:30 AM EDT Telemedicine Bariatric Surgery [address] [phone] Sheri Martinez, BHUMIKA [address] [phone] 10/01/2024 10:30 AM EDT Office Visit Adult Medicine [facility] [address] [place] [phone] Garcia Gilmore PA [address] [place] [address] 10/09/2024 9:00 AM EDT Office Visit Bariatric Surgery - [address] [phone] Dc Morrow MD [address] [address] 10/09/2024 9:30 AM EDT Nutrition Bariatric Surgery - [address] [phone] [phone] 10/14/2024 11:20 AM EDT Appointment Radiology Department [address] [phone] 12/04/2024 9:45 AM EDT Office Visit Pulmonol - [place] [address] [facility] [address] [place] [phone] Joann Drake MD 175 [facility] [address] [place] [address] Health Maintenance Due Date Last Done Comments HIV Screening 02/25/2022 Medicare Annual Wellness Visit 02/25/2022 Social Influencers of Health Screening 02/25/2022 RSV Immunization Adult Patients (1 - Risk 60-74 years 1-dose series) 2023 COVID-19 Vaccine (2023- season) 2023 03/02/2021, 06/26/2020, 05/29/2020 Colorectal Cancer Screening: Stool Based Tests (FOBT/FIT) 05/28/2024 05/29/2023 Depression Screening 10/01/2024 10/02/2023 Pneumococcal Vaccine: 50+ Years (3 of 3 - PCV20 or PCV21) 02/09/2025 02/10/2020, 02/19/2018 Hypertension/CHF/CAD Annual BMP Blood Test 04/03/2025 04/03/2024, 05/29/2023 Breast Cancer Screening 10/09/2025 10/10/19, 10/10/2023, 12/15/2021, Additional history exists DTaP,Tdap,and Td Vaccines (3 - Td or Tdap) 12/05/2027 12/04/2017, 07/11/2006 Cervical Cancer Screening: HPV 09/04/2028 09/05/2023 Cholesterol Screening (Lipid Panel) 04/03/2029 04/03/2024, 05/29/2023 Hepatitis C Screening Completed 05/16/2017 Zoster Vaccines Completed 02/26/2018, 12/07/2017 Pneumococcal Vaccine: Pediatrics (0 to 5 Years) and At-Risk Patients (6 to 64 Years) Aged Out 02/10/2020, 02/19/2018 No longer eligibl e based on patient's age to complete this topic Influenza Vaccine Completed 12/26/2023, , 12/22/2021, Additional history exists HIB Vaccines Aged Out No longer eligi ble based on patient's age to complete this topic HPV Vaccines Aged Out No longer eligi ble based on patient's age to complete this topic Hepatitis A Vaccines Aged Out No long er eligible based on patient's age to complete this topic Hepatitis B Vaccines Aged Out No long er eligible based on patient's age to complete this topic IPV Vaccines Aged Out No longer eligi ble based on patient's age to complete this topic MMR Vaccines Aged Out No longer eligi ble based on patient's age to complete this topic Meningococcal ACWY Vaccine Aged Out N o longer eligible based on patient's age to complete this topic Meningococcal B Vaccine Aged Out No l onger eligible based on patient's age to complete this topic RSV Immunization Patients Under 20 months Aged Out No longer eligible based on patient's age to complete this topic Varicella Vaccines Aged Out No longer eligible based on patient's age to complete this topic Procedures Procedure Name Priority Date/Time Associated Diagnosis Comments EXTERNAL CLINICAL LAB 07/02/2024 EXTERNAL XRAY REPORT 07/02/2024 OH INJECTION CARPAL TUNNEL THERAPEUTIC Routine 06/09/2024 10:30 AM EDT Left carpal tunnel syndrome COMPREHENSIVE METABOLIC PANEL Routine 04/03/2024 11:09 AM EST Obesity, Class III, BMI 40-49.9 (morbid obesity) (CMS/HCC V24, CMS/HCC V28) REGINALD on CPAP Primary hypertension LIPID PANEL WITH REFLEX TO DIRECT LDL Routine 04/03/2024 11:09 AM EST Obesity, Class III, BMI 40-49.9 (morbid obesity) (CMS/HCC V24, CMS/HCC V28) REGINALD on CPAP Primary hypertension SCREENING MAMMOGRAPHY BI 2-VIEW BREAST INC CAD Routine 10/10/2023 3:29 PM EDT Encounter for screening mammogram for malignant neoplasm of breast DEPRESSION SCREENING Routine 10/02/2023 HPV Routine 09/05/2023 STOOL BASED TEST Routine 05/29/2023 HEPATITIS C SCREENING Routine 05/16/2017 from Last 3 Months or Most Recently Relevant to Health Maintenance Results * External Xray Report (07/02/2024) Anatomical Region Laterality Modality Radiographic Tamia ging Provider [facility] IMG XR PROCEDURES Final Result * External clinical lab (07/02/2024) Provider [facility] LAB BLOOD ORDERABLES Fin al Result * OH INJECTION CARPAL TUNNEL THERAPEUTIC (06/09/2024 10:30 AM EDT) Narrative Yumi Westbrook PA - 06/09/2024 10:30 AM EDT SISSY Chawla ? 06/09/2024 10:52 AM Hand / UE Inj/Asp: L carpal tunnel for carpal tunnel syndrome Details: 25 G needle, volar approach Medications: 40 mg triamcinolone acetonide 40 mg/mL; 0.5 mL lidocaine 1 % Informed Consent: ??Laterality: ??Left ??Relevant images/test results available and reviewed: yes ?Health status cleared: ??Yes ??Procedure/treatment, purpose, treatment alternatives, risks/potential complications and benefits explained: yes ?Risk/complications/benefits details: ??Risks of infection, thinning of the skin and temporary skin discoloration discussed. ??Discussed risks of temporary increased pain after injection and swelling and mild redness at injection site for couple days. ??Explained occasionally cortisone injection can cause facial flushing temporarily. ??Benefits pain management. ??For postop injection pain ice, Tylenol and/or NSAIDs if patient can take ??Patient questions answered: yes ?Patient agrees, verbalizes understanding, and wants to proceed: yes ?Consent given by: ??Patient ??Informed consent discussion completed by Physician/LIN with patient: ?? Verbal ??Pre-procedure timeout performed: yes ?? Yumi SHEEHAN IN CLINIC/BEDSIDE ORDERABLES Final Result * (ABNORMAL) Lipid panel with reflex to direct LDL (04/03/2024 11:09 AM EST) Cholesterol 210(H) 0 - 200 mg/dL LAB CHEMISTRY METHOD 04/03/2024 4:45 PM EST [facility] Triglycerides 171(H) 0 - 150 mg/dL LAB CHEMISTRY METHOD 04/03/2024 4:45 PM [facility] HDL 58 >=40 mg/dL LAB CHEMISTRY METHOD 04/03/2024 4:45 PM [facility] LDL Calculated 118(H) 0 - 100 mg/dL LAB CHEMISTRY METHOD 04/03/2024 4:45 PM EST [facility] VLDL Cholesterol Carmelo 34.2 mg/dL LAB CHEMISTRY METHOD 04/03/2024 4:45 PM [facility] Non HDL Chol. (LDL+VLDL) 152(H) <145 mg/dL LAB CHEMISTRY METHOD 04/03/2024 4:45 PM [facility] Chol/HDL Ratio 3.6 0.0 - 4.4 LAB CHEMISTRY METHOD 04/03/2024 4:45 PM [facility] Blood Venous blood specimen / Unknown Venipuncture / Unknown 04/03/2024 11:09 AM EST 04/03/2024 11:09 AM EST us Daphnie Deleon MD LAB BLOOD ORDERABLES F inal Result [facility] [address] [place] [address], * Comprehensive metabolic panel (04/03/2024 11:09 AM EST) Sodium 137 133 - 145 mmol/L LAB CHEMISTRY METHOD 04/03/2024 4:45 PM [facility] Potassium 4.7 3.5 - 5.5 mmol/L LAB CHEMISTRY METHOD 04/03/2024 4:45 PM [facility] Chloride 105 96 - 110 mmol/L LAB CHEMISTRY METHOD 04/03/2024 4:45 PM [facility] CO2 26 21 - 32 mmol/L LAB CHEMISTRY METHOD 04/03/2024 4:45 PM [facility] Anion Gap 6 3 - 11 LAB CHEMISTRY METHOD 04/03/2024 4:45 PM [facility] Glucose 78 70 - 100 mg/dL LAB CHEMISTRY METHOD 04/03/2024 4:45 PM [facility] BUN 23 5 - 25 mg/dL LAB CHEMISTRY METHOD 04/03/2024 4:45 PM [facility] Creatinine 0.86 0.50 - 1.10 mg/dL LAB CHEMISTRY METHOD 04/03/2024 4:45 PM [facility] eGFR 77 >=60 mL/min/1. 73m2 LAB CHEMISTRY METHOD 04/03/2024 4:45 PM [facility] Comment:Calculation based on the??Chronic Kidney Disease Epidemiology Collaboration (CKD-EPI) equation refit??without adjustment for race. BUN/Creatinine Ratio 26.7 LAB CHEMISTRY METHOD 04/03/2024 4:45 PM [facility] Calcium 9.6 8.5 - 10.5 mg/dL LAB CHEMISTRY METHOD 04/03/2024 4:45 PM [facility] AST (SGOT) 37 10 - 42 unit/L LAB CHEMISTRY METHOD 04/03/2024 4:45 PM [facility] ALT (SGPT) 40 10 - 60 unit/L LAB CHEMISTRY METHOD 04/03/2024 4:45 PM [facility] Alkaline Phosphatase 119 42 - 121 unit/L LAB CHEMISTRY METHOD 04/03/2024 4:45 PM [facility] Total Protein 7.4 6.0 - 8.0 g/dL LAB CHEMISTRY METHOD 04/03/2024 4:45 PM [facility] Albumin 3.9 3.2 - 5.0 g/dL LAB CHEMISTRY METHOD 04/03/2024 4:45 PM [facility] Total Bilirubin 0.4 0.0 - 1.4 mg/dL LAB CHEMISTRY METHOD 04/03/2024 4:45 PM EST [facility] Blood Venous blood specimen / Unknown Venipuncture / Unknown 04/03/2024 11:09 AM EST 04/03/2024 11:09 AM EST us Daphnie Deleon MD LAB BLOOD ORDERABLES F inal Result [facility] [address] [place] [address], [place] [phone] * SCREENING MAMMOGRAPHY BI 2-VIEW BREAST INC CAD (10/10/2023 3:29 PM EDT) Anatomical Region Laterality Modality Radiographic Tamia ging 05/29/2023 9:34 AM EDT Narrative 10/11/2023 12:33 PM EDT This is a summary report. The complete report is available in the patient's medical record. If you cannot access the medical record, please contact the sending organization for a detailed fax or copy. BILATERAL 3D DIGITAL SCREENING MAMMOGRAM History: Routine screening. ??No current breast complaints. ?? Comparison: Multiple priors dating back to 12/02/2019 Technique: Bilateral full-field digital 3D mammography was performed using standard CC and MLO projections CAD was used to evaluate this mammogram. Findings: Density: ??There are scattered areas of fibroglandular density-B RIGHT: No suspicious masses, groups of microcalcification or areas of architectural distortion identified. Stable typically benign parenchymal asymmetries LEFT: No suspicious masses, groups of microcalcifications or areas of architectural distortion identified. Stable typically benign parenchymal asymmetries IMPRESSION: : 1. ??No mammographic evidence of malignancy. BI-RADS Category 2 benign findings Recommendation: Routine annual screening mammography is recommended Procedure Note Chaparrita Mayes MD - 01/02/2024 This is a summary report. The complete report is available in thepatient's medical record. If you cannot access the medical record, pleasecontact the sending organization for a detailed fax or copy. BILATERAL 3D DIGITAL SCREENING MAMMOGRAM History: Routine screening. No current breast complaints. Comparison: Multiple priors dating back to 12/02/2019 Technique: Bilateral full-field digital 3D mammography was performed usingstandard CC and MLO projections CAD was used to evaluate this mammogram. Findings: Density: There are scattered areas of fibroglandular density-B RIGHT: No suspicious masses, groups of microcalcification or areas ofarchitectural distortion identified. Stable typically benign parenchymalasymmetries LEFT: No suspicious masses, groups of microcalcifications or areas ofarchitectural distortion identified. Stable typically benign parenchymalasymmetries IMPRESSION: : 1. No mammographic evidence of malignancy. BI-RADS Category 2 benign findings Recommendation: Routine annual screening mammography is recommended Daphnie Deleon MD IMG XR PROCEDURES Maira l Result * Depression Screening (10/02/2023) [facility] Depression Screening Abstracted [facility] Provider HEALTH MAINTENANCE Final Result * Cervical Cancer Screening: HPV (09/05/2023) [facility] Cervical Cancer Screening: HPV Negative, Abstracted Result [facility] Provider HEALTH MAINTENANCE Final Result * Stool Based Tests (FOBT/FIT) (05/29/2023) [facility] Colorectal Cancer Screening: Stool Based Tests No Interpretation , Abstracted Result [facility] Provider HEALTH MAINTENANCE Final Result * Hepatitis C Screening (05/16/2017) [facility] Hepatitis C Screening Abstracted [facility] Provider HEALTH MAINTENANCE Final Result from Last 3 Months or Most Recently Relevant to Health Maintenance Insurance MEDICARE MEDICAID - [place] Care Teams Batter Depositor Relationship Specialty Start Date End Date Daphnie Deleon MD [address] [place] [phone] PCP - General Internal Medicine 04/12/21
--- OUTSIDE RECORDS SUMMARY | 2024-07-14 11:29 | XMS_ITS | Clinical Summary ---
Author Organization [facility] Address [address] [place] [address] Care Team Providers Care Tipple Boss Name Role Phone Unavailable Primary Care Provider Unavailabl e Source Comments PLEASE NOTE, if this patient is a minor, it may be UNLAWFUL to discuss sensitive information that is contained in these records (such as FAMILY PLANNING, MENTAL HEALTH or SUBSTANCE ABUSE) with the minor patient's parent or other person without the patient's specific authorization.[facility] Social History Tobacco Use Types Packs/Day Years Used Date Smoking Tobacco: Never Assessed Social Connections Answer Date Recorded Social Connections and Isolation 0 05/12/2021 Financial Resource Strain Answer Date R ecorded Financial Resource Strain 0 2021 Stress Answer Date Recorded Stress 0 05/12/2021 Physical Activity Answer Date Recorded Physical Activity 0 05/12/2021 Food Insecurity Answer Date Recorded Food 0 05/12/2021 Transportation Needs Answer Date Record ed Transportation 0 05/12/2021 Housing Stability Answer Date Recorded Housing 0 05/12/2021 Safety and Environment Answer Date Lincoln rded Safety 0 05/12/2021 Utilities Answer Date Recorded Utilities 0 05/12/2021 Employment Answer Date Recorded Employment 0 05/12/2021 Comments Unknown Sex and Gender Information Value Date Recorded Sex Assigned at Not on file Legal Sex Female 8:35 AM PST Gender Identity Not on file Sexual Orientation Not on file Plan of Treatment Health Maintenance Due Date Last Done Comments Anxiety Screening 1965 Diabetes Screening 1965 HPV Screening 1965 Hepatitis C Screening 1965 Lipid Screening 1963 Pap + HPV 1963 Tobacco Screening 1963 HIV Screening 05/30/1978 Hypertension Screening (#1) 05/30/1981 Imm-DTaP/Tdap/Td (1 - Tdap) 05/30/1982 Cervical Cancer Screening 05/30/1984 Pap Smear 05/30/1984 Breast Cancer Screening (Mammogram) 2003 CT Colonography 05/30/2008 Colonoscopy 05/30/2008 Colorectal Cancer Screening 05/30/2008 FIT/gFOBT 05/30/2008 Fecal DNA 05/30/2008 Flexible Sigmoidoscopy 05/30/2008 Imm-Zoster, Recombinant (1 of 2) 05/30/2013 [id number] ( season) 2023 021, 05/29/2020 Imm-Influenza (#1) 2023 Alcohol and Drug Screen 03/19/2024 Depression Annual Screen 03/19/2024 Cervical Ablation/Cold-Knife Conization Discontinued Cervical Cryotherapy Discontinued Colposcopy Discontinued Endometrial Biopsy Discontinued Excision/Leep Discontinued HPV Genotyping Discontinued Vaginal Pap Discontinued Vulvoscopy Discontinued Insurance [place] MED[place] D[place]
== END 2024-07-14 11:00 | disposition home or self-care (01) ==
LOC: HO.HNS 10:00
PROVIDERS: Visit Provider Physician Assistant
DX: M25.551 Pain in right hip (principal)
CPT/HCPCS: 99213

== ENCOUNTER → 2024-07-14 09:59 | Outpatient (BNVA) | payer MEDICARE, MEDICAID, SELFPAY | PROVIDERS: Visit Provider Physician Assistant | DX: M25.551 Pain in right hip (principal) | CPT/HCPCS: 99212 ==

== ENCOUNTER 2024-10-31 12:48 | Outpatient (REF) | payer MEDICARE, MEDICAID, SELFPAY ==
--- NOTE | ~2024-10-31 | CT_ITS ---
CLINICAL HISTORY: Z98.1 - Arthrodesis status CT lumbar spine without contrast Comparison: DX - XR LUMBAR SPINE 4V MIN - 04/01/24 13:44 EST Findings: No acute fracture. Scoliosis. Degenerative changes of the lumbar spine with osteophytes. There is narrowing of the L4-L5 and L5-S1 intervertebral disc space. Mild narrowing of the bilateral L4-L5 and L5-S1 neural foramina. Grade 1 anterolisthesis of L4 on L5. There are spacers in the L3-L4 and L4-L5. Posterior spinal fusion of L3-L4. Evaluation is limited by the artifact from the prosthesis. Evidence of previous fusion in the L5 with tract of screws visualized. Normal visualized abdominal contents. IMPRESSION: No acute findings. Degenerative changes of the lumbar spine with grade 1 anterolisthesis of L4 on L5. Intact fusion hardware of L3-L4. This document has been electronically signed by: Tanvi Johnston MD on 11/01/2024 13:08:31
--- OUTSIDE RECORDS SUMMARY | 2024-10-31 12:51 | XMS_ITS | Clinical Summary ---
Author Organization [facility] Address [address] [place] [address] Care Team Providers Care Benzene Still Utility Operator Name Role Phone Guido Horowitz MD Primary [...] season) 2023 06/26/2020, 05/29/2020 Influenza Vaccine (#1) 2024 0, 02/24/2019, 12/04/2017, Additional history exists RSV [...] age to complete this topic Care Teams Benzene Still Utility Operator Relationship Specialty Start Date End Date Guido Horowitz MD [address] [place] [phone] PCP - General Internal Medicine 01/12/21
--- OUTSIDE RECORDS SUMMARY | 2024-10-31 12:51 | XMS_ITS | Clinical Summary ---
Author Organization [facility] [address] [facility] lding Address [address] [place] [address] Phone Care Team Providers Care Gas Line Installer Name Role Phone Daphnie Deleon MD Primary Care Provider Allergies No known active allergies Medications Bacillus coagulans-inulin 1 billion-250 cell-mg capsule Take by mouth [...] mg total) by mouth. 12/23/19 22 Active buPROPion XL (WELLBUTRIN XL) 300 mg 24 hr tabletIndication s:Essential (primary) hypertension,Enc ounter for general adult medical examination without abnormal findings TAKE 1 TABLET BY MOUTH EVERY DAY IN THE MORNING 90 tablet 1 05/31/19 25 Active nystatin (MYCOSTATIN) ointment APPLY TO AFFECTED AREA TWICE DAILY NEEDED FOR RASH. 30 g 1 09/09/19 25 Active tofacitinib 5 mg tablet Take 1 tablet by mouth 2 (two) times a day. Active gabapentin (NEURONTIN) 300 mg capsuleIndicatio ns:Lumbar disc disease Take 1 capsule (300 mg total) by mouth 3 (three) times a day. Active ibuprofen (ADVIL,MOTRIN) 800 mg tabletIndication s:Lumbar disc disease Take 1 tablet (800 mg total) by mouth 1 (one) time each day if needed for moderate pain. Active mirtazapine (REMERON) 7.5 mg tabletIndication s:Anxiety Take 1 tablet (7.5 mg total) by mouth at bedtime. 30 each 10/02/19 25 Active lisinopriL (PRINIVIL,ZESTRI L) 20 mg tabletIndication s:Essential (primary) hypertension Take 1 tablet (20 mg total) by mouth 1 (one) time each day. 90 tablet 10/02/19 25 Active tirzepatide, weight loss, (Zepbound) 15 mg/0.5 mL injectionIndicat ions:Class 2 obesity due to excess calories with body mass index (BMI) of 37.0 to 37.9 in adult, unspecified whether serious comorbidity present Inject 0.5 mL (15 mg total) under the skin every 7 (seven) days. 2 mL 5 10/10/19 25 Active tirzepatide, weight loss, (Zepbound) 12.5 mg/0.5 mL injection Inject 0.5 mL (12.5 mg total) under the skin every 7 (seven) days for 28 days. 2 mL 09/25/19 25 025 Discontinued Active Problems Problem Noted Date Diagnosed Date Class 1 obesity with serious comorbidity and body mass index (BMI) of 34.0 to 34.9 in adult 03/11/2024 Lumbar disc disease 10/28/2020 Overview (01/25/2024): Spinal fusion 12/22/2020 L4-L5 Last Assessment & Plan: Following Dr. Smith'buck, [facility] neurosurgery for her back pain-she is currently taking about 6 tablets of ibuprofen for the severe pain daily. She has severe L4-L5 stenosis with significant facet arthropathy and spondylolisthesis at L4-L5. She is scheduled for lumbar spinal surgery/lumbar fusion on November 18, 2020. Spinal stenosis of lumbar re gion with neurogenic claudication 10/28/2020 Overview (01/25/2024): Following Dr. Bolivar, [facility] neurosurgery. Lumbar spinal fusion on November 18. Diverticulitis 05/14/2019 Overview (01/25/2024): 05/2016 With rupture, colectomy with colostomy, colostomy takedown 4 months later Obstructive sleep apnea 10/20/2016 Overview (01/25/2024): [facility] Home Polysomnogram: Date 10/17/2016; AHI [...] study, PLMs ~11. Seropositive rheumatoid arth ritis (CMS/[facility] V24, CMS/[facility] V28) 03/09/2016 Overview (01/25/2024): Onset ~ 2013 RF neg, CCP pos Sulfasalazine 05/05-12/03: Ineffective Hydroxychloroquine 04/2016 -11/2016: Ineffective Methotrexate 05/06-09/03: Ineffective Enbrel 11/02-08/03- failing effect. Xeljanz since 09/03 TB lung, latent 08/26/2015 Overview (01/25/2024): Positive serology reported from [facility], seen by Dr. Price at TB clinic, positive T-spine and QuantiFERON gold, normal LFTs 12/21/15, Rx rifampin 600 mg daily 4 months on 01/18/16 Polycythemia 10/22/2013 Hyperlipidemia 07/21/2013 Depression 10/25/2008 Osteoarthritis 10/25/2008 Overview (01/25/2024): Thoracic, & Lumbosacral Spine Essential hypertension 10/23/2008 Overview (01/25/2024): Off lisinopril hctz since 12/23 GERD (gastroesophageal reflux disease) 08/07/200 9 PFO (patent foramen ovale) 10/23/2008 Overview (01/25/2024): 4mm on KARLA in 04/23 with mod right to left shunt, EF 60%, treadmill exercise test neg 06/15/04, Encounters Date Type Department Care Team Description 10/14/2024 11:03 AM EDT - 10/14/2024 11:59 PM EDT Hospital Encounter Radiology Department - [address] [phone] Encounter for screening mammogram for breast cancer Discharge Disposition: Home or Self Care 10/09/2024 9:30 AM EDT Nutrition Bariatric Surgery - [address] [phone] Sheri Martinez, BHUMIKA Class 1 obesity with serious comorbidity and body mass index (BMI) of 34.0 to 34.9 in adult, unspecified obesity type (Primary Dx) 10/09/2024 9:00 AM EDT Office Visit Bariatric Surgery [address] [phone] Dc Morrow MD Class 2 obesity due to excess calories with body mass index (BMI) of 37.0 to 37.9 in adult, unspecified whether serious comorbidity present (Primary Dx) 10/01/2024 10:30 AM EDT Office Visit Adult Medicine - [address] [phone] Garcia Gilmore PA Routine general medical examination at a health care facility (Primary Dx); Essential (primary) hypertension; Seropositive rheumatoid arthritis (CMS/HCC V24, CMS/HCC V28); Anxiety; Lumbar disc disease; Screen for colon cancer 09/23/2024 Telephone Bariatric Surgery [address] [phone] Dc Morrow MD Med Refill (Zepbound w/titration ) 08/26/2024 Telephone Bariatric Surgery [address] [phone] Dc Morrow MD Med Refill (Zepbound) 07/31/2024 10:30 AM EDT Telemedicine Bariatric Surgery - [address] [phone] Sheri Martinez, BHUMIKA Class 2 severe obesity with serious comorbidity and body mass index (BMI) of 36.0 to 36.9 in adult, unspecified obesity type ([facility] V24, [facility] V28) (Primary Dx) from Last 3 Months Immunizations Name Administration Dates Next Due Influenza Quadravalent, MDCK , 0.5ml, preservative free (Flucelvax) 6mo and older 04/03/2023,12/22/2021,01/31/2021,02/09,02/24/2019,12/04/2017 Influenza Quadravalent, MDCK , 0.5ml, with preservative (Flucelvax) 6mo and older 12/26/2023,12/06/2016 Influenza Quadrivalent, 0.5m l, preservative free (Fluarix; FluLaval; Fluzone) ages 6mo and older (Afluria) 3yo and older 12/17/2013 Influenza trivalent, 0.5mL, preservative free (Fluarix; FluLaval; Fluzone) ages 6mo and older (Afluria) 3 years and older 01/07/2016,12/17/2013,12/30/2012,12/17,01/05/2010 Influenza trivalent, with pr eservative (Fluzone; Afluria) 6mo and older 01/07/2016,12/30/2012,12/17/2010,01/05 Moderna SARS-CoV-2 COVID-19, mRNA, LNP-S, preservative free [...] hernia repair OTHER SURGICAL HISTORY 06/10/2016 PROCEDURE: FL LAPS COLECTOMY PRTL W/RMVL TERMINAL ILEUM; COMMENT: sigmoid colectomy with colostomy and removal of lap band, Dr Se Encinas OTHER SURGICAL HISTORY 09/21/2016 PROCEDURE: FL LAPS GASTRIC RESTRICTIVE PX REMOVE DEVICE; COMMENT: Removal of Lap band BACK SURGERY 12/22/2020 PROCEDURE: HISTORICAL BACK SURGERY; COMMENT: L 4-5 spinal fusion anterior posterior, Dr. Molina OTHER SURGICAL HISTORY 12/29/1987 Bilateral PROCEDURE: HISTORY OTHER; COMMENT: Vulvectomy SPINAL FUSION 01/31/2024 L3-L4- by at [facility] Medical History Medical History Date Comments Hypertension [...] Polycythemia 10/22/2013 DX:Polycythemia Seropositive rheumatoid arth ritis ([facility] V24, [facility] V28) 03/09/2016 DX:Seropositive rheumatoid arthritis ([facility]); COMMENT: - 2013 RF neg, CCP pos Sulfasalazine 05/05-12/03: Ineffective Hydroxychloroquine 04/2016 -11/2016: Ineffective Methotrexate 05/06-09/03: Ineffective Enbrel 11/02-08/03- failing effect. Xeljanz since 09/03 TB lung, latent 08/26/2015 DX:TB lung, late nt; COMMENT: Positive serology reported from [facility], seen by Dr. Price at TB clinic, positive T-spine and QuantiFERON gold, normal LFTs 12/21/15, Rx rifampin 600 mg daily 4 months on 01/18/16 Morbid obesity with BMI of 40.0-44.9, adult ([facility] V24, [facility] V28) 10/06/2016 DX:Morbid obesity with BMI o f 40.0-44.9, adult ([facility]) Family History Medical History Relation Name Comments Hypertension Brother 1 Hypertension Brother 2 Lymphoma Father [place], Hypertensio n, Stroke Mother Valve replaceme nt, s/p rheumatic fever Blindness Neg Hx Breast cancer Neg Hx Cataracts Neg Hx Glaucoma Neg Hx Macular degeneration Neg Hx Strabismus Neg Hx Relation Name Status Comments Brother 1 Alive Brother 2 Alive Daughter 1 Gertrudis Alive Daughter 2 Kasey [...] Sexual Orientation Not on file Obstetrics History Para Term AB IAB SAB Ectopic Multiple Livin g Live Births 2 2 2 2 Date Outcome GA Total Labor Labor/2nd/3rd Weight Sex Type Anes PTL Rose Marie A1 A5 Name Clin Term Term Last Filed Vital Signs Vital Sign Reading Time Taken Comments Blood Pressure 123/82 10/09/2024 9:21 AM EDT Pulse 73 10/09/2024 9:21 AM EDT Temperature 36.6 C (97.8 F) 10/09/2024 9:21 AM EDT Respiratory Rate 16 04/03/2024 9:55 AM EST Oxygen Saturation - - Inhaled Oxygen Concentration - - Weight 88.9 kg (196 lb) 10/09/2024 9:37 AM EDT Height 160 cm (5' 3 ) 10/09/2024 9:21 AM EDT Body Mass Index 34.72 10/09/2024 9:21 AM EDT Plan of Treatment Upcoming Encounters Date Type Department Care Team (Late st Contact Info) Description 12/04/2024 9:45 AM EDT Office Visit Pulmonolgy - [place] [address] [phone] Joann Drake MD [address] [address] 02/09/2025 10:00 AM EST Nutrition Bariatric Surgery - [place] [address] [phone] Sheri Martinez, RD [address] [phone] 03/31/2025 9:45 AM EST Office Visit Adult Medicine - [place] [address] [place] [phone] Daphnie Deleon MD [address] [place] [address] 04/14/2025 10:15 AM EST Office Visit Bariatric Surgery - [place] [address] [place] [phone] Dc Morrow MD [address] [place] [address] Health Maintenance Due Date Last Done Comments HIV Screening 02/25/2022 Social Influencers of Health Screening 02/25/2022 RSV Immunization Adult Patients (1 - Risk 60-74 years 1-dose series) 2023 COVID-19 Vaccine ( season) 2023 03/02/2021, 06/26/2020, 05/29/2020 Depression Screening 03/19/2024 10/02/2023 Colorectal Cancer Screening: Stool Based Tests (FOBT/FIT) 05/28/2024 05/29/2023 Influenza Vaccine (#1) 2024 , 04/03/2023, 12/22/2021, Additional history exists Pneumococcal Vaccine: 50+ Years (3 of 3 - PCV20 or PCV21) 02/09/2025 02/10/2020, 02/19/2018 Hypertension/CHF/CAD Annual BMP Blood Test 04/03/2025 04/03/2024, 05/29/2023 Medicare Annual Wellness Visit 10/01/2025 Postponed from 02/25/2022 (Not clinically appropriate to address at this time) Breast Cancer Screening 10/14/2026 10/15/19, 10/10/2023, 10/10/2023, Additional history exists DTaP,Tdap,and Td Vaccines (3 - Td or Tdap) 12/05/2027 12/04/2017, 07/11/2006 Cervical Cancer Screening: HPV 09/04/2028 09/05/2023 Cholesterol Screening (Lipid Panel) 04/03/2029 04/03/2024, 05/29/2023 Hepatitis C Screening Completed 05/16/2017 Zoster Vaccines Completed 02/26/2018, 12/07/2017 HIB Vaccines Aged Out No longer eligi [...] 20 months Aged Out No longer eligible b ased on patient's age to complete this topic Varicella Vaccines Aged Out No longer eligible based on patient's age to complete this topic Procedures Procedure Name Priority Date/Time Associated Diagnosis Comments MG MAMMO DIGITAL SCREENING W BALTAZAR BILAT Routine 10/14/2024 11:24 AM EDT Encounter for screening mammogram for breast cancer LAB COLOGUARD COLON CANCER SCREEN Routine 10/11/2024 8:50 AM EDT Screen for colon cancer COMPREHENSIVE METABOLIC PANEL Routine 04/03/2024 11:09 AM EST Obesity, Class III, BMI 40-49.9 (morbid obesity) (CMS/HCC V24, CMS/HCC V28) REGINALD on CPAP Primary hypertension LIPID PANEL WITH REFLEX TO DIRECT LDL Routine 04/03/2024 11:09 AM EST Obesity, Class III, BMI 40-49.9 (morbid obesity) (CMS/HCC V24, CMS/HCC V28) REGINALD on CPAP Primary hypertension HM DEPRESSION SCREENING Routine 10/02/2023 HM HPV Routine 09/05/2023 HM STOOL BASED TEST Routine 05/29/2023 HEPATITIS C SCREENING Routine 05/16/2017 from Last 3 Months or Most Recently Relevant to Health Maintenance Results * MG Mammo Digital Screening w Baltazar bilat (10/14/2024 11:24 AM EDT) Anatomical Region Laterality Modality Breast Bilateral Mammography 10/15/2024 3:54 PM EDT Impressions 10/15/2024 3:58 PM EDT No mammographic evidence for malignancy. BI-RADS CATEGORY: 1 - NEGATIVE RECOMMENDATION: Screening bilateral mammogram is recommended in 1 year. Mammo Location: [facility], [address] [place] [address], [phone], . -------- FINAL REPORT -------- Dictated By: Rashmi Brown Dictated Date: 10/15/2024 15:54 ET Assigned Physician: Rashmi Brown Reviewed and Electronically Signed By: Rashmi Brown Signed Date: 10/15/2024 15:58 ET Workstation ID: [id number] Transcribed By: Self Edit Transcribed Date: 10/15/2024 15:54 ET Narrative 10/15/2024 3:58 PM EDT Bilateral screening mammogram. CLINICAL: 59 years old, Female, routine annual exam. COMPARISON: Prior mammograms, latest from 10/10/2023. TECHNIQUE: Bilateral MLO and CC views were obtained digitally with 2-D C views and 3-D mammogram (digital breast tomosynthesis). Computer-aided detection was utilized in evaluation of this exam (CAD). FINDINGS: There is no evidence of suspicious mass or architectural distortion. No worrisome calcifications are evident. There has been no significant change from prior exam(s). BREAST DENSITY: B - There are scattered areas of fibroglandular density. Procedure Note Rashmi Brown MD - 10/15/2024 Bilateral screening mammogram. CLINICAL: 59 years old, Female, routine annual exam. COMPARISON: Prior mammograms, latest from 10/10/2023. TECHNIQUE: Bilateral MLO and CC views were obtained digitally with 2-D Cviews and 3-D mammogram (digital breast tomosynthesis). Computer-aideddetection was utilized in evaluation of this exam (CAD). FINDINGS: There is no evidence of suspicious mass or architectural distortion. Noworrisome calcifications are evident. There has been no significantchange from prior exam(s). BREAST DENSITY: B - There are scattered areas of fibroglandular density. IMPRESSION: No mammographic evidence for malignancy. BI-RADS CATEGORY: 1 - NEGATIVE RECOMMENDATION: Screening bilateral mammogram is recommended in 1 year. Mammo Location: [facility], [address] [place] [address], [id number], . -------- FINAL REPORT -------- Dictated By: Rashmi Brown Dictated Date: 10/15/2024 15:54 ET Assigned Physician: Rashmi Brown Reviewed and Electronically Signed By: Rashmi Brown Signed Date: 10/15/2024 15:58 ET Workstation ID: [id number] Transcribed By: Self Edit Transcribed Date: 10/15/2024 15:54 ET Daphnie Deleon MD [facility] BI PROCEDURES Maira l Result * Cologuard?? colon cancer screening (10/11/2024 8:50 AM EDT) COLOGUARD Negative Negative [facility] Comment: The Cologuard Plus (TM) test was performed on this specimen. NEGATIVE TEST RESULT. A negative (normal) Cologuard Plus result means the patient has a [id number] chance of having colorectal cancer (CRC) or advanced precancer (polyps or lesions that could become cancer). Negative is the normal value (reference range) for this assay. Guidelines recommend screening again 3 years after a negative Cologuard Plus result. Continued screening increases the chance of finding CRC early or preventing it entirely. A clinical validation study showed the Cologuard Plus test is effective at ruling out CRC. Out of every 10,000 patients testing negative, approximately 2 will be falsely reassured that they do not have CRC, and out of every 100 patients testing negative, approximately 7 patients will be falsely reassured they do not have advanced precancer. TEST DESCRIPTION: The Cologuard Plus test is a multi-target stool DNA (mt-sDNA) test that analyzes DNA and hemoglobin biomarkers in stool. It uses a proprietary algorithm to qualitatively detect CRC and advanced precancer. It is FDA-approved and indicated for use in adults 45 years or older at average risk for CRC. A positive (abnormal) result should be followed by a colonoscopy. Patients with a negative (normal) result should screen again in 3 years. False positive and false negative results may occur. The USPSTF recommends the Cologuard test as a CRC screening option. Their modeling estimates that screening with the test every 3 years from ages 45-85 could prevent up to 73% of CRC and avoid up to 85% of CRC deaths. A 18,911-patient clinical trial found the Cologuard Plus test effectively detects CRC and precancer. The study found the test was 95% sensitive for CRC, 43% sensitive for advanced precancer, and had a 91% specificity (Cologuard Plus Clinician Brochure. [employer] [place], [place] Visit www.[employer]/about/uwdspcuu-[email or web address]-[email or web address] for more test information, references, warnings, and precautions. Stool 10/11/2024 8:50 AM EDT 10/12/2024 10:04 PM EDT Garcia SHEEHAN [facility] MOLECULAR DIAGNOSTICS ORD ERABLES Final Result [employer] - [address] [place] [address] [employer] [address] [place] [address] * (ABNORMAL) Lipid panel with reflex to direct LDL (04/03/2024 11:09 AM EST) Cholesterol 210(H) 0 - 200 mg/dL LAB CHEMISTRY METHOD 04/03/2024 4:45 PM EST [facility] Triglycerides 171(H) 0 - 150 mg/dL LAB CHEMISTRY METHOD 04/03/2024 4:45 PM EST [facility] HDL 58 >=40 mg/dL LAB CHEMISTRY METHOD 04/03/2024 4:45 PM EST [facility] LDL Calculated 118(H) 0 - 100 mg/dL LAB CHEMISTRY METHOD 04/03/2024 4:45 PM [facility] VLDL Cholesterol Carmelo 34.2 mg/dL LAB CHEMISTRY METHOD 04/03/2024 4:45 PM [facility] Non HDL Chol. (LDL+VLDL) 152(H) <145 mg/dL LAB CHEMISTRY METHOD 04/03/2024 4:45 PM [facility] Chol/HDL Ratio 3.6 0.0 - 4.4 LAB CHEMISTRY METHOD 04/03/2024 4:45 PM [facility] Blood Venous blood specimen / Unknown Venipuncture / Unknown 04/03/2024 11:09 AM EST 04/03/2024 11:09 AM EST us Daphnie Deleon MD LAB BLOOD ORDERABLES F inal Result [facility] [address] [place] [address], * Comprehensive metabolic panel (04/03/2024 11:09 AM EST) Sodium 137 133 - 145 mmol/L LAB CHEMISTRY METHOD 04/03/2024 4:45 PM [facility] Potassium 4.7 3.5 - 5.5 mmol/L LAB CHEMISTRY METHOD 04/03/2024 4:45 PM [facility] Chloride 105 96 - 110 mmol/L LAB CHEMISTRY METHOD 04/03/2024 4:45 PM [facility] CO2 26 21 - 32 mmol/L LAB CHEMISTRY METHOD 04/03/2024 4:45 PM [facility] Anion Gap 6 3 - 11 LAB CHEMISTRY METHOD 04/03/2024 4:45 PM [facility] Glucose 78 70 - 100 mg/dL LAB CHEMISTRY METHOD 04/03/2024 4:45 PM [facility] BUN 23 5 - 25 mg/dL LAB CHEMISTRY METHOD 04/03/2024 4:45 PM [facility] Creatinine 0.86 0.50 - 1.10 mg/dL LAB CHEMISTRY METHOD 04/03/2024 4:45 PM [facility] eGFR 77 >=60 mL/min/1. 73m2 LAB CHEMISTRY METHOD 04/03/2024 4:45 PM [facility] Comment:Calculation based on the Chronic Kidney Disease Epidemiology Collaboration (CKD-EPI) equation refit without adjustment for race. BUN/Creatinine Ratio 26.7 LAB CHEMISTRY METHOD 04/03/2024 4:45 PM [facility] Calcium 9.6 8.5 - 10.5 mg/dL LAB CHEMISTRY METHOD 04/03/2024 4:45 PM [facility] AST (SGOT) 37 10 - 42 unit/L LAB CHEMISTRY METHOD 04/03/2024 4:45 PM [facility] ALT (SGPT) 40 10 - 60 unit/L LAB CHEMISTRY METHOD 04/03/2024 4:45 PM [facility] Alkaline Phosphatase 119 42 - 121 unit/L LAB CHEMISTRY METHOD 04/03/2024 4:45 PM [facility] Total Protein 7.4 6.0 - 8.0 g/dL LAB CHEMISTRY METHOD 04/03/2024 4:45 PM [facility] Albumin 3.9 3.2 - 5.0 g/dL LAB CHEMISTRY METHOD 04/03/2024 4:45 PM [facility] Total Bilirubin 0.4 0.0 - 1.4 mg/dL LAB CHEMISTRY METHOD 04/03/2024 4:45 PM [facility] Blood Venous blood specimen / Unknown Venipuncture / Unknown 04/03/2024 11:09 AM EST 04/03/2024 11:09 AM EST Daphnie Deleon MD LAB BLOOD ORDERABLES F inal Result [facility] ([facility] [address] [place] [address], * Depression Screening (10/02/2023) [facility] Depression Screening Abstracted Historical Provider HEALTH MAINTENANCE Final Result * Cervical Cancer Screening: HPV (09/05/2023) [facility] Cervical Cancer Screening: HPV Negative, Abstracted Historical Provider HEALTH MAINTENANCE Final Result * Stool Based Tests (FOBT/FIT) (05/29/2023) [facility] Colorectal Cancer Screening: Stool Based Tests No Interpretation , Abstracted Historical Provider HEALTH MAINTENANCE Final Result * Hepatitis C Screening (05/16/2017) [facility] Hepatitis C Screening Abstracted Historical Provider HEALTH MAINTENANCE Final Result from Last 3 Months or Most Recently Relevant to Health Maintenance Insurance MEDICARE MEDICAID - [place] Care Teams Gas Line Installer Relationship Specialty Start Date End Date Daphnie Deleon MD [address] [place] [id number] PCP - General Internal Medicine 04/12/21
--- OUTSIDE RECORDS SUMMARY | 2024-10-31 12:51 | XMS_ITS ---
Author Name [facility] Organization Unknown Care Team Organization Name Specialty Phone Email Start Date End Da te [facility] Bebo Cisneros DO Primary Care 08/25/202210/17 [facility] Termed, PROVIDER Primary Care 01/24/202210/17
--- OUTSIDE RECORDS SUMMARY | 2024-10-31 12:51 | XMS_ITS | Clinical Summary ---
Author Organization [facility] Address [address] [place] [address] Care Team Providers Care Drafter (Cad) Electrical Name Role Phone Unavailable Primary Care Provider [...] 05/30/2008 Fecal DNA 05/30/2008 Flexible Sigmoidoscopy 05/30/2008 Imm-Pneumococcal 50+ (1 of 1 - PCV) 05/30/2013 Imm-Zoster, Recombinant (1 of 2) 05/30/2013 [id number] (3 - season) 2023 021, 05/29/2020 Alcohol and Drug Screen 03/19/2024 Depression Annual Screen 03/19/2024 Imm-Influenza (#1) 2024 Cervical Ablation/Cold-Knife Conization Discontinued Cervical Cryotherapy Discontinued Colposcopy Discontinued Endometrial Biopsy Discontinued Excision/Leep Discontinued HPV Genotyping Discontinued Vaginal Pap Discontinued Vulvoscopy Discontinued [place]
--- OUTSIDE RECORDS SUMMARY | 2024-10-31 12:51 | XMS_ITS | Encounter Summary ---
Author Organization [facility] Address [address] [place] [address] Care Team Providers Care Presidential Support Specialist Name Role Phone Isamar Smith MD Primary Care Provider Unavaila Guido Hodges MD Primary Care Provide r Unavailable Daphnie Deleon MD Primary Care Provider [phone] Giancarlo Molina MD, PHD Unavailable Unava Josselin Phipps Unavailable Yg Burns MD Unavailable Linda Bustos MD Unavailable [phone] Encounter Details Date Type Department Care Team Description 04/24/2019 Transfer Records Medical Records [address] [place] [id number] Abstract, Provider Social History Tobacco Use Types Packs/Day Years Used Date Smoking Tobacco: Former Cigarettes 15 Q uit: 03/19/1993 Smokeless Tobacco: Never Alcohol Use Standard Drinks/Week Comments No 0 (1 standard drink = 0.6 oz pur e alcohol) Sex Assigned at Date Recorded Female 12/22/2021 3:20 PM E DT Job Start Date Occupation Industry Not on file Not on file Not on file documented as of this encounter Nursing Notes * Sangeetha Flowers - 04/24/2019 3:11 PM EST Transfer Records from Dr. Merced Encinas sent to Rissa Lopez RN, laundry room attendant. documented in this encounter Plan of Treatment Not on file documented as of this encounter Visit Diagnoses Not on filedocumented in this encounter Care Teams Presidential Support Specialist Relationship Specialty Start Date End Date Isamar Smith MD PCP - General 09/21/08 10/27/20 Guido Horowitz MD PCP - General Internal Medicine 10/28/20 04/11/21 Daphnie Deleon MD [address] [place] [address] PCP - General Internal Medicine 04/12/21 Giancarlo Molina MD, PHD [address] [place] [address] Neurosurgery 04/12/21 Josselin Hess FNP [address] [place] [address] Specialist Family Practice 04/12/21 Yg Burns MD [address] [place] [address] Specialist Cardiovascular Disease 02/22/23 Linda Bustos MD [address] [place] [id number] Sports Medicine Int Med 05/29/23 [facility] Specialist Rheumatology 04/07/22 documented as of this encounter
== END 2024-10-31 12:49 | disposition home or self-care (01) ==
LOC: HO.CT 12:48
PROVIDERS: Visit Provider Physician Assistant
DX: Z98.1 Arthrodesis status (principal)
CPT/HCPCS: 72131

== ENCOUNTER → 2024-10-31 12:51 | Outpatient (BNV) | payer MEDICARE, MEDICAID, SELFPAY | PROVIDERS: Visit Provider Nuclear Medicine | DX: M51.369 Other intervertebral disc degeneration, lumbar region without mention of lumbar back pain or lower extremity pain (principal); Z98.1 Arthrodesis status | CPT/HCPCS: 72131 ==